=== PATIENT | female | born 1950 | race Caucasian/White ===

== ENCOUNTER 2021-04-23 20:08 | Inpatient (IN) | payer BC, MEDICARE, OTHER ==
[~2021-04-23] VITALS: Ht 175.3 cm; Wt 75.2 kg
[2021-04-24] MEDS ORDERED: bisacodyl 10mg suppository rectal RC PRN (04:40)
[2021-04-24] MEDS ORDERED: magnesium hydroxide 30ml (MOM) UD suspension PO PRN (04:40)
[2021-04-24] MEDS ORDERED: HYDROcodone/acetaminophen 10/325mg tab PO PRN (04:40)
[2021-04-24] MEDS ORDERED: diphenhydrAMINE 25mg capsule PO PRN (04:40)
[2021-04-24] MEDS ORDERED: acetaminophen 325mg tablet PO PRN ×2 (04:40)
[2021-04-24] MEDS ORDERED: diphenhydrAMINE 50 mg/ml inj IV PRN (04:40)
[2021-04-24] MEDS ORDERED: ondansetron/PF 4mg/2ml inj IV PRN (04:40)
[2021-04-24] MEDS ORDERED: mag hydrox/Alum hydrox/simeth 30ml oral suspension PO PRN (04:40)
[2021-04-24] MEDS ORDERED: ipratropium/albuterol 3ml nebule NEB PRN (04:40)
[2021-04-24] MEDS ORDERED: ondansetron 4mg rapidly disintigrating tab PO PRN (04:40)
[2021-04-24] MEDS ORDERED: morphine 2 MG/ML inj. syringe IV PRN ×2 (04:40)
[2021-04-24] MEDS ORDERED: HYDROcodone/acetaminophen 5mg/325mg tablet PO PRN (04:40)
[2021-04-24] MEDS ORDERED: acetaminophen 650mg rectal suppository RC PRN (04:40)
[2021-04-24] MEDS ORDERED: dextrose 50%-water 50ml dispensing syringe IV PRN (04:50)
[2021-04-24] MEDS ORDERED: haloperidol lactate 5mg/ml inj IM PRN (04:50)
[2021-04-24] MEDS ORDERED: LORazepam 2 mg/ml vial IV PRN ×2 (04:50)
[2021-04-24 05:00] VITALS: BP 145/83
[2021-04-24] MEDS: normal saline 1000ml 1,000 ML IV SCH ×2 (05:00→14:40)
[2021-04-24] MEDS ORDERED: magnesium Cl slow-release 64mg tablet PO PRN (05:35)
[2021-04-24] MEDS ORDERED: potassium Cl 20 mEq SR tablet PO PRN (05:35)
[2021-04-24] MEDS ORDERED: magnesium 4gm in 100ml NS 100 ML IV PRN (05:35)
[2021-04-24] MEDS ORDERED: magnesium 2GM in 50ml NS 50 ML IV PRN (05:35)
[2021-04-24] MEDS ORDERED: Neutra Phos packet PO PRN (05:35)
[2021-04-24] MEDS: potassium CL 10mEq/100ml bag 100 ML IV SCH ×13 (05:40→17:40)
--- NOTE | 2021-04-24 06:47 | NUR ---
Patient in room PCU 3015. I have received report from SHILA Garcia and had the opportunity to ask questions and assume patient care.
--- NOTE | 2021-04-24 07:06 | NUR ---
Problems reprioritized. Patient report given, questions answered & plan of care reviewed with Kvng. Addendum: 04/24/21 at 0707 by Suraj Benitez RN Amended: Links added.
[2021-04-24] MEDS: folic acid 1mg/0.2ml inj IV SCH (07:09)
[2021-04-24] MEDS: piperacillin/tazo 3.375gm/50ml 50 ML IV SCH ×2 (07:09→13:14)
[2021-04-24] MEDS: docusate sod 100mg capsule PO SCH ×2 (07:10→20:01)
[2021-04-24] MEDS: thiamine 100mg/ml 2ml inj. IV SCH ×3 (07:10→21:36)
[2021-04-24 07:21] LABS: APTT 34 SECONDS (22-32); D-DIMER 3.18 MG/L FEU (0-0.50)
[2021-04-24 07:23] VITALS: BP 145/83
[2021-04-24 07:53] LABS: MAGNESIUM 1.5 MG/DL (1.5-2.4); PHOSPHORUS 1.3 MG/DL (2.3-4.5)
[2021-04-24] MEDS: K and/or MAG REPLACEMENT MC SCH ×2 (08:00→20:00)
[2021-04-24 08:10] LABS: HEMOGLOBIN A1C 4.9 % (4.5-6.2)
--- NOTE | 2021-04-24 08:27 | NUR ---
PAGER ID: [phone] MESSAGE: [id number]- Nidia Brunner- per report patient pulled out mak catheter and has been pulling lines. Restraints were placed on patient by HS RN. Ok to order restraints? Thank you- Kvng [id number]
[2021-04-24 08:31] LABS: BASOPHILS % (AUTO) 0.2 % (0-1); EOSINOPHILS % (AUTO) 0.1 % (0-6); HEMATOCRIT 33.6 % (35.0-45.0); HEMOGLOBIN 11.6 g/dl (12.0-16.0); LYMPHOCYTES % (AUTO) 6.6 % (21-51); MEAN CORPUSCULAR HEMOGLOBIN 34.8 PG (27.0-31.0); MEAN CORPUSCULAR HGB CONC 34.4 g/dL (33.0-36.5); MEAN PLATELET VOLUME 7.5 FL (7.4-10.4); MONOCYTES # (AUTO) 1.9 X10'3 (0-0.9); MONOCYTES % (AUTO) 12.9 % (2-12); NEUTROPHILS # (AUTO) 11.7 X10'3 (1.8-7.7); NEUTROPHILS % (AUTO) 80.2 % (42-75); PLATELET COUNT 107 X10'3 (140-440); RED BLOOD COUNT 3.32 X10'6 (4.20-5.60); RED CELL DISTRIBUTION WIDTH 14.8 % (11.5-14.5); WHITE BLOOD COUNT 14.6 X10'3 (4.5-11.0)
[2021-04-24] MEDS ORDERED: MONT-40 PO (08:53)
[2021-04-24] MEDS ORDERED: FAMO20TA8 PO (08:53)
[2021-04-24] MEDS ORDERED: ALBU18HF2 PO (08:53)
[2021-04-24] MEDS ORDERED: rocuronium 10mg/ml inj IV ONE (09:00)
[2021-04-24] MEDS ORDERED: etomidate 2mg/ml inj. ONE (09:00)
[2021-04-24 09:06] LABS: ALANINE AMINOTRANSFERASE 25 U/L (12-78); ALBUMIN 2.6 G/DL (3.4-5.0); ALBUMIN/GLOBULIN RATIO 0.6 (1.1-1.5); ALKALINE PHOSPHATASE 95 IU/L (46-116); ANION GAP 12 (8-16); ASPARTATE AMINO TRANSFERASE 55 U/L (10-37); BILIRUBIN,TOTAL 2.1 MG/DL (0.1-1.0); BLOOD UREA NITROGEN 14 MG/DL (7-18); BUN/CREATININE RATIO 25.5 (6.6-38.0); CALCIUM 7.6 MG/DL (8.5-10.1); CHLORIDE 107 MMOL/L (99-107); CREATININE 0.55 MG/DL (0.40-0.90); SODIUM 144 MMOL/L (135-145); TOTAL CARBON DIOXIDE 24.9 MMOL/L (24-32); eGFR > 90 ML/MIN
[2021-04-24] MEDS: vancomycin/NS 1 GM ADD-VANTAGE 250 ML IV SCH ×2 (09:07→21:29)
[2021-04-24 09:11] LABS: GLUCOSE 107 MG/DL (70-104)
[2021-04-24 09:16] LABS: POTASSIUM 2.5 MMOL/L (3.5-5.1)
--- NOTE | 2021-04-24 10:21 | NUR ---
Patient unable to answer questions on CT screening form. Patient's Peña called for screening form.
[2021-04-24 10:59] LABS: LACTIC SEPSIS 1.8 MMOL/L (0.4-2.0)
[2021-04-24 11:00] VITALS: BP 156/79
[2021-04-24] MEDS ORDERED: iohexol 350MG/ML 100ml bottle IV ONE (11:50)
--- NOTE | 2021-04-24 12:17 | NUR ---
Patient down to CT scan.
--- NOTE | 2021-04-24 12:42 | NUR ---
Patient back to room 3015B.
[2021-04-24 15:48] VITALS: BP 137/86
[2021-04-24 18:00] VITALS: BP 137/84
--- NOTE | 2021-04-24 18:12 | NUR ---
Problems reprioritized. Patient report given, questions answered & plan of care reviewed with SHILA Chambers.
[2021-04-24] MEDS ORDERED: VANCOMYCIN LEVEL IV ONE (19:30)
[2021-04-24] MEDS: lactobacillus rhamnosus 10,000 MMU CELLS/CAPSULE PO SCH (20:01)
[2021-04-24 20:54] LABS: POTASSIUM 2.6 MMOL/L (3.5-5.1)
[2021-04-24 21:00] LABS: VANCOMYCIN,TROUGH 4.4 UG/ML (6.0-14.0)
[2021-04-24] MEDS ORDERED: temazepam 15mg capsule PO PRN (21:00)
[2021-04-24] MEDS: potassium Cl 20 mEq SR tablet PO PRN (21:36)
[2021-04-24 22:00] VITALS: BP 152/85
[2021-04-25] MEDS: normal saline 1000ml 1,000 ML IV SCH (00:35)
[2021-04-25] MEDS: piperacillin/tazo 3.375gm/50ml 50 ML IV SCH ×4 (00:51→21:40)
[2021-04-25 02:00] VITALS: BP 155/83
[2021-04-25] MEDS: potassium CL 10mEq/100ml bag 100 ML IV SCH ×9 (06:04→23:56)
--- NOTE | 2021-04-25 06:38 | NUR ---
Patient was very drowsy and agitated throughout the night in bilateral restraints. Attempting to get out of bed and pulled out iv several times.Medicated with atProblems reprioritized. Patient report given, questions answered & plan of care reviewed with lizzy.
[2021-04-25 07:00] VITALS: BP 151/60
--- NOTE | 2021-04-25 07:00 | NUR ---
Patient in room PCU 3015. I have received report from Edmondson and had the opportunity to ask questions and assume patient care.
[2021-04-25 07:27] LABS: BASOPHILS % (AUTO) 0.1 % (0-1); EOSINOPHILS % (AUTO) 0.2 % (0-6); HEMOGLOBIN 12.2 g/dl (12.0-16.0); LYMPHOCYTES # (AUTO) 1.5 X10'3 (1.1-4.8); LYMPHOCYTES % (AUTO) 11.6 % (21-51); MEAN CORPUSCULAR HEMOGLOBIN 35.1 PG (27.0-31.0); MEAN CORPUSCULAR HGB CONC 34.9 g/dL (33.0-36.5); MEAN CORPUSCULAR VOLUME 100.5 FL (78-98); MEAN PLATELET VOLUME 7.6 FL (7.4-10.4); MONOCYTES # (AUTO) 1.9 X10'3 (0-0.9); MONOCYTES % (AUTO) 15.2 % (2-12); NEUTROPHILS # (AUTO) 9.2 X10'3 (1.8-7.7); NEUTROPHILS % (AUTO) 72.9 % (42-75); PLATELET COUNT 132 X10'3 (140-440); RED BLOOD COUNT 3.48 X10'6 (4.20-5.60); RED CELL DISTRIBUTION WIDTH 14.7 % (11.5-14.5); WHITE BLOOD COUNT 12.7 X10'3 (4.5-11.0)
[2021-04-25 07:47] LABS: ALANINE AMINOTRANSFERASE 26 U/L (12-78); ALBUMIN 2.7 G/DL (3.4-5.0); ALBUMIN/GLOBULIN RATIO 0.6 (1.1-1.5); ALKALINE PHOSPHATASE 97 IU/L (46-116); ANION GAP 11 (8-16); ASPARTATE AMINO TRANSFERASE 65 U/L (10-37); BLOOD UREA NITROGEN 11 MG/DL (7-18); BUN/CREATININE RATIO 20.8 (6.6-38.0); CALCIUM 7.1 MG/DL (8.5-10.1); CHLORIDE 103 MMOL/L (99-107); CHOL/HDL RATIO 6.5 (0.00-4.99); CHOLESTEROL 183 MG/DL (0-200); CREATININE 0.53 MG/DL (0.40-0.90); HDL CHOLESTEROL 28 MG/DL (35-60); LDL CHOLESTEROL 122 MG/DL (50-100); SODIUM 143 MMOL/L (135-145); TOTAL PROTEIN 7.2 G/DL (6.4-8.2); TRIGLYCERIDES 92 MG/DL (20-135); eGFR > 90 ML/MIN
--- NOTE | 2021-04-25 07:47 | NUR ---
Provider made aware via [employer] messenger of patient's 2nd positive blood culture result drawn on 04/24/2021 called in this morning. Addendum: 04/25/21 at 0757 by Sofie Cason RN Provider also made aware that patient has a potassium-2.2 and magnesium-1.0. Plan of care per protocol.
[2021-04-25 07:48] LABS: GLUCOSE 107 MG/DL (70-104)
[2021-04-25 07:50] LABS: POTASSIUM 2.2 MMOL/L (3.5-5.1)
[2021-04-25] MEDS: lactobacillus rhamnosus 10,000 MMU CELLS/CAPSULE PO SCH ×3 (08:00→20:00)
[2021-04-25] MEDS: K and/or MAG REPLACEMENT MC SCH ×2 (08:00→20:00)
[2021-04-25] MEDS: docusate sod 100mg capsule PO SCH ×3 (08:00→20:00)
[2021-04-25] MEDS: thiamine 100mg/ml 2ml inj. IV SCH ×3 (08:10→22:35)
[2021-04-25] MEDS: folic acid 1mg/0.2ml inj IV SCH (08:10)
[2021-04-25] MEDS: potassium Cl 20 mEq SR tablet PO PRN (08:16)
[2021-04-25] MEDS: vancomycin/NS 1 GM ADD-VANTAGE 250 ML IV SCH ×2 (09:38→16:48)
[2021-04-25 11:00] VITALS: BP 152/90
[2021-04-25] MEDS: potassium Cl 20mEq in NS 1,000 ML IV SCH (11:56)
[2021-04-25 12:28] LABS: TOTAL CELLS COUNTED 100
[2021-04-25 12:29] LABS: PLATELET ESTIMATE DECREASED
[2021-04-25 15:00] VITALS: BP 151/90
[2021-04-25 18:00] VITALS: BP 172/88
--- NOTE | 2021-04-25 18:36 | NUR ---
Problems reprioritized. Patient report given, questions answered & plan of care reviewed with Ayana.
--- NOTE | 2021-04-25 18:47 | NUR ---
Request sent to Dr. Tam via [employer]ok to reorder patient's customer consulting manager if he wants patient to continue on the monitor.
[2021-04-25 22:00] VITALS: BP 160/94
[2021-04-26] MEDS: vancomycin/NS 1 GM ADD-VANTAGE 250 ML IV SCH ×2 (00:47→10:33)
[2021-04-26] MEDS: potassium Cl 20mEq in NS 1,000 ML IV SCH ×3 (00:56→17:59)
[2021-04-26 02:00] VITALS: BP 164/95
[2021-04-26] MEDS: piperacillin/tazo 3.375gm/50ml 50 ML IV SCH (05:55)
--- NOTE | 2021-04-26 06:00 | NUR ---
Pt slept most of the shift. Had frequent moments of putting her legs out of the bed. Arousable by shaking and calling her name. Oriented to self. Night time pills held since she is unable to take p.o at this time. Frequent rounding throughout the shift
--- NOTE | 2021-04-26 06:41 | NUR ---
Patient in room PCU 3015. I have received report from Ayana and had the opportunity to ask questions and assume patient care.
[2021-04-26 07:00] VITALS: BP 172/81
--- NOTE | 2021-04-26 07:00 | NUR ---
Change of shift report given to Celina RN Addendum: 04/26/21 at 0782 by Ayana Cason RN Amended: Links added.
[2021-04-26] MEDS ORDERED: VANCOMYCIN LEVEL IV ONE (07:30)
[2021-04-26] MEDS: docusate sod 100mg capsule PO SCH ×2 (08:00→20:00)
[2021-04-26] MEDS: lactobacillus rhamnosus 10,000 MMU CELLS/CAPSULE PO SCH ×2 (08:00→20:00)
[2021-04-26] MEDS: K and/or MAG REPLACEMENT MC SCH ×2 (08:00→20:00)
[2021-04-26] MEDS: thiamine 100mg/ml 2ml inj. IV SCH ×3 (09:13→21:00)
[2021-04-26] MEDS: folic acid 1mg/0.2ml inj IV SCH (09:14)
[2021-04-26 09:38] LABS: BASOPHILS % (AUTO) 0.1 % (0-1); EOSINOPHILS % (AUTO) 0.1 % (0-6); HEMATOCRIT 37.6 % (35.0-45.0); HEMOGLOBIN 13.3 g/dl (12.0-16.0); LYMPHOCYTES # (AUTO) 1.6 X10'3 (1.1-4.8); LYMPHOCYTES % (AUTO) 10.1 % (21-51); MEAN CORPUSCULAR HEMOGLOBIN 35.1 PG (27.0-31.0); MEAN CORPUSCULAR HGB CONC 35.3 g/dL (33.0-36.5); MEAN CORPUSCULAR VOLUME 99.7 FL (78-98); MEAN PLATELET VOLUME 7.3 FL (7.4-10.4); MONOCYTES # (AUTO) 2.5 X10'3 (0-0.9); MONOCYTES % (AUTO) 15.7 % (2-12); NEUTROPHILS # (AUTO) 11.7 X10'3 (1.8-7.7); PLATELET COUNT 161 X10'3 (140-440); RED BLOOD COUNT 3.78 X10'6 (4.20-5.60); RED CELL DISTRIBUTION WIDTH 14.9 % (11.5-14.5); WHITE BLOOD COUNT 15.9 X10'3 (4.5-11.0)
[2021-04-26 09:59] LABS: ALBUMIN 2.7 G/DL (3.4-5.0); ALKALINE PHOSPHATASE 111 IU/L (46-116); ANION GAP 15 (8-16); ASPARTATE AMINO TRANSFERASE 93 U/L (10-37); BILIRUBIN,TOTAL 4.7 MG/DL (0.1-1.0); BLOOD UREA NITROGEN 9 MG/DL (7-18); CALCIUM 6.6 MG/DL (8.5-10.1); CHLORIDE 101 MMOL/L (99-107); CREATININE 0.53 MG/DL (0.40-0.90); MAGNESIUM 1.8 MG/DL (1.5-2.4); SODIUM 143 MMOL/L (135-145); TOTAL CARBON DIOXIDE 27.5 MMOL/L (24-32); eGFR > 90 ML/MIN
[2021-04-26 10:06] LABS: ALBUMIN/GLOBULIN RATIO 0.6 (1.1-1.5); GLUCOSE 106 MG/DL (70-104); TOTAL PROTEIN 7.3 G/DL (6.4-8.2); VANCOMYCIN,TROUGH 7.5 UG/ML (6.0-14.0)
[2021-04-26 10:11] LABS: POTASSIUM 2.1 MMOL/L (3.5-5.1)
--- NOTE | 2021-04-26 10:24 | NUR ---
Dr Tam made aware via [employer] that patient has a potassium-2.1 called in at 1010.
[2021-04-26] MEDS ORDERED: potassium CL 10mEq/100ml bag 100 ML IV PRN (10:25)
[2021-04-26] MEDS ORDERED: potassium Cl 20 mEq SR tablet PO PRN ×2 (10:25)
[2021-04-26] MEDS ORDERED: magnesium 4gm in 100ml NS 100 ML IV PRN (10:25)
[2021-04-26] MEDS ORDERED: magnesium Cl slow-release 64mg tablet PO PRN (10:25)
[2021-04-26 10:27] LABS: ALANINE AMINOTRANSFERASE 38 U/L (12-78)
[2021-04-26] MEDS: potassium CL 10mEq/100ml bag 100 ML IV PRN ×5 (10:50→22:30)
[2021-04-26 11:00] VITALS: BP 149/91
[2021-04-26 11:28] LABS: PLATELET ESTIMATE NORMAL; TOTAL CELLS COUNTED 100
[2021-04-26 11:31] LABS: MAGNESIUM 1.5 MG/DL (1.5-2.4)
[2021-04-26 11:36] LABS: POTASSIUM 2.1 MMOL/L (3.5-5.1)
[2021-04-26] MEDS: levoFLOXACIN-Levaquin 750MG/D5 150 ML IV SCH (13:00)
--- NOTE | 2021-04-26 14:03 | NUR ---
Provider made aware that patient's -Peña Albertgianna ([phone]) requests to talk to the provider.
[2021-04-26 15:00] VITALS: BP 153/86
[2021-04-26] MEDS ORDERED: VANCOmycin 1250MG/NS 250ml Bag 250 ML IV SCH (16:00)
[2021-04-26 18:00] VITALS: BP 153/94
--- NOTE | 2021-04-26 19:03 | NUR ---
Problems reprioritized. Patient report given, questions answered & plan of care reviewed with Power.
[2021-04-26] MEDS ORDERED: iohexol 300mg/ml 100ml inj. ONE (19:06)
[2021-04-26] MEDS: magnesium oxide 400mg tablet PO SCH (20:00)
[2021-04-26 22:00] VITALS: BP 161/94
[2021-04-27] VITALS (20 sets, daily range): BP systolic 69–156; BP diastolic 42–91
[2021-04-27] MEDS ORDERED: furosemide 40mg/4ml inj IV ONE (01:20)
[2021-04-27] MEDS ORDERED: furosemide 40mg/4ml inj ONE (01:22)
[2021-04-27 01:49] LABS: ABG BASE EXCESS 5.5 mmol/L (-2.0-2.0); ABG HCO3 29.9 mmol/L (22.0-26.0); ABG OXYGEN SATURATION 81.4 % (94-97); ABG PCO2 (T) 41.8 mmHg (32.0-45.0); ABG PO2 (T) 45.1 mmHg (75.0-100.0); ALLEN'S TEST POSITIVE; FCOHb 0.7 % (0.0-3.9); FLOW 15 L/min; FMetHb 0.3 % (0.0-1.5); FO2Hb 80.6 % (94-97); PATIENT TEMPERATURE 36.7
[2021-04-27] MEDS ORDERED: LIDOcaine 2% 10ml TOPICAL JELLY (Urojet) TP ONE (01:50)
[2021-04-27 02:01] LABS: BASOPHILS # (AUTO) 0.2 X10'3 (0-0.2); EOSINOPHILS % (AUTO) 0.1 % (0-6); HEMATOCRIT 42.8 % (35.0-45.0); LYMPHOCYTES # (AUTO) 2.1 X10'3 (1.1-4.8); LYMPHOCYTES % (AUTO) 10.5 % (21-51); MEAN CORPUSCULAR HEMOGLOBIN 34.8 PG (27.0-31.0); MEAN CORPUSCULAR VOLUME 99.5 FL (78-98); MEAN PLATELET VOLUME 7.2 FL (7.4-10.4); MONOCYTES # (AUTO) 3.1 X10'3 (0-0.9); MONOCYTES % (AUTO) 15.4 % (2-12); NEUTROPHILS # (AUTO) 14.5 X10'3 (1.8-7.7); PLATELET COUNT 265 X10'3 (140-440); RED CELL DISTRIBUTION WIDTH 14.7 % (11.5-14.5); WHITE BLOOD COUNT 19.9 X10'3 (4.5-11.0)
[2021-04-27 02:18] LABS: CLARITY,URINE CLEAR (Clear); GLUCOSE, URINE NEGATIVE (Neg); KETONES,URINE NEGATIVE (Neg); LEUKOCYTE ESTERASE ,URINE NEGATIVE (Neg); NITRITES, URINE NEGATIVE (Neg); OCCULT BLOOD,URINE MODERATE (Neg); PROTEIN,URINE NEGATIVE (Neg); UROBILINOGEN,URINE 0.2 E.U/dL (0.2-1.0)
[2021-04-27 02:24] LABS: UA COLLECTION TYPE NON-SPECIFIED
[2021-04-27 02:26] LABS: BACTERIA,URINE NONE SEEN /HPF (Neg); SQUAMOUS EPITHELIAL CELL,UR FEW /LPF (FEW); WBC,URINE 0-4 /HPF (0-4)
[2021-04-27 02:26] LABS: ALANINE AMINOTRANSFERASE 47 U/L (12-78); ALBUMIN 3.1 G/DL (3.4-5.0); ALKALINE PHOSPHATASE 129 IU/L (46-116); ANION GAP 14 (8-16); ASPARTATE AMINO TRANSFERASE 119 U/L (10-37); BILIRUBIN,TOTAL 5.4 MG/DL (0.1-1.0); BLOOD UREA NITROGEN 14 MG/DL (7-18); BUN/CREATININE RATIO 20.3 (6.6-38.0); CALCIUM 6.8 MG/DL (8.5-10.1); CHLORIDE 103 MMOL/L (99-107); CREATININE 0.69 MG/DL (0.40-0.90); LIPASE 193 U/L (73-393); MAGNESIUM 1.1 MG/DL (1.5-2.4); SODIUM 145 MMOL/L (135-145); TOTAL CARBON DIOXIDE 28.3 MMOL/L (24-32); eGFR 84 ML/MIN
[2021-04-27 02:27] LABS: MUCUS STRANDS NONE SEEN /LPF (Neg)
[2021-04-27 02:27] LABS: CREATINE KINASE 1039 U/L (26-192); GLUCOSE 137 MG/DL (70-104); PHOSPHORUS 1.6 MG/DL (2.3-4.5); TOTAL PROTEIN 8.1 G/DL (6.4-8.2)
[2021-04-27 02:28] LABS: POTASSIUM 2.7 MMOL/L (3.5-5.1)
[2021-04-27 02:29] LABS: ALBUMIN/GLOBULIN RATIO 0.6 (1.1-1.5)
[2021-04-27 02:32] LABS: COLOR,URINE STRAW (Yellow)
[2021-04-27 02:44] LABS: PLATELET ESTIMATE NORMAL; TOTAL CELLS COUNTED 100
[2021-04-27 03:37] LABS: ABG BASE EXCESS 2.5 mmol/L (-2.0-2.0); ABG HCO3 26.8 mmol/L (22.0-26.0); ABG PCO2 (T) 40.6 mmHg (32.0-45.0); ABG PO2 (T) 83.1 mmHg (75.0-100.0); ALLEN'S TEST POSITIVE; FCOHb 0.2 % (0.0-3.9); FMetHb 0.4 % (0.0-1.5); FO2Hb 95.4 % (94-97); RESPIRATORY RATE 18 b/min; TOTAL HEMOGLOBIN 15.6 G/dl (12.0-16.0)
[2021-04-27 05:06] LABS: ABG BASE EXCESS 3.6 mmol/L (-2.0-2.0); ABG HCO3 30.1 mmol/L (22.0-26.0); ABG OXYGEN SATURATION 85.5 % (94-97); ABG PCO2 (T) 52.1 mmHg (32.0-45.0); ABG PO2 (T) 52.6 mmHg (75.0-100.0); ALLEN'S TEST POSITIVE; FCOHb 0.1 % (0.0-3.9); FMetHb 0.4 % (0.0-1.5); FO2Hb 85.1 % (94-97); PATIENT TEMPERATURE 36.8; RESPIRATORY RATE 18 b/min; TOTAL HEMOGLOBIN 15.6 G/dl (12.0-16.0)
--- NOTE | 2021-04-27 05:30 | NUR ---
Patient was on respiratory distress. Rapid response team was activated, after reevaluation and investigation, patient was transferred to ICU for higher level of care. Report was given to SHILA Lawrence.
[2021-04-27] MEDS ORDERED: NORepinephrine 8mg/ 250ml NS 250 ML IV ONE ×2 (05:47→20:04)
[2021-04-27 06:00] LABS: ABG BASE EXCESS 0.6 mmol/L (-2.0-2.0); ABG HCO3 26.2 mmol/L (22.0-26.0); ABG OXYGEN SATURATION 79.6 % (94-97); ABG PCO2 (T) 45.4 mmHg (32.0-45.0); ABG PO2 (T) 44.4 mmHg (75.0-100.0); ALLEN'S TEST POSITIVE; FCOHb 0.3 % (0.0-3.9); FMetHb 0.2 % (0.0-1.5); FO2Hb 79.2 % (94-97); PEEP 5 cm H2O; RESPIRATORY RATE 18 b/min; TIDAL VOLUME 400 mL
[2021-04-27] MEDS ORDERED: magnesium 4gm in 100ml NS 100 ML IV ONE (06:10)
[2021-04-27] MEDS ORDERED: potassium Cl 20 mEq/100mL bag IV SCH (06:10)
[2021-04-27] MEDS: propofol 1000mg/100ml bottle 100 ML IV SCH (06:20)
[2021-04-27] MEDS ORDERED: propofol 1000mg/100ml bottle 100 ML IV ONE (06:22)
--- NOTE | 2021-04-27 06:30 | NUR ---
Patient in room ICU 2042. I have received report from vineet and had the opportunity to ask questions and assume patient care.
[2021-04-27] MEDS: potassium Cl 20mEq/100mL bag 100 ML IV SCH ×3 (06:32→09:30)
--- NOTE | 2021-04-27 06:52 | NUR ---
PT was brought down after RR. PT transferred to ICU bed and placed on Bedside monitor. PT HR 140's-160's, on Bipap with O2 sat mid to high 80's. ED MD called for intubated. PT was intubated @ 0532 with a size 8.0 measuring 25 @ the teeth. PT became significantly hypotensive post intubation with BP 40's/20's. Levo started to PIV until ED MD placed a RT Femoral CVL and Levo was moved to CVL. Drsg placed in sterile fashion to CVL. BP improved. ICU Tele-Med ordered Mag replacement and CVL Potassium replacement. PT's HR remains 140's-150's, no new orders received in regards to HR. Ortega in place upon PT arrival to unit. Bed is locked and low. Bilat soft wrist restraints in place and secure. Report given to Amy FUCHS.
[2021-04-27] MEDS: K and/or MAG REPLACEMENT MC SCH ×2 (08:00→20:17)
[2021-04-27] MEDS: docusate sod 100mg capsule PO SCH ×2 (08:00→20:14)
--- NOTE | 2021-04-27 08:00 | NUR ---
pt sedated on diprivan. replacing k and mg per orders. st up to 160- diprivan bolus given as rr to 26 over vent rate. hr to 150. levophed adjusted up and down to maintain map at 60 or above. called and updated re pt coming to icu.. updated
[2021-04-27 08:01] LABS: TRIGLYCERIDES 107 MG/DL (20-135)
[2021-04-27] MEDS: potassium Cl 20mEq in NS 1,000 ML IV SCH ×2 (08:17→15:35)
[2021-04-27] MEDS: famotidine/PF 10 mg/ml inj IV SCH ×2 (08:23→20:14)
[2021-04-27] MEDS: heparin, porcine 5000 units/ml vial SQ SCH ×2 (08:23→20:15)
[2021-04-27] MEDS: levoFLOXACIN-Levaquin 750MG/D5 150 ML IV SCH (08:23)
[2021-04-27] MEDS: lactobacillus rhamnosus 10,000 MMU CELLS/CAPSULE PO SCH ×2 (08:24→20:14)
[2021-04-27] MEDS: magnesium oxide 400mg tablet PO SCH ×2 (08:26→20:15)
[2021-04-27] MEDS: FENTANYL-0.9 % NACL/PF 100 ML IV PRN (10:40)
[2021-04-27] MEDS: midazolam 100mg in NS 100ml 100 ML IV PRN (10:41)
[2021-04-27] MEDS: ceFAZolin/D5W- 1GM premix 50 ML IV SCH ×3 (10:41→20:14)
[2021-04-27 11:55] LABS: ALANINE AMINOTRANSFERASE 41 U/L (12-78); ALBUMIN 2.6 G/DL (3.4-5.0); ALBUMIN/GLOBULIN RATIO 0.6 (1.1-1.5); ALKALINE PHOSPHATASE 110 IU/L (46-116); ANION GAP 13 (8-16); ASPARTATE AMINO TRANSFERASE 94 U/L (10-37); BILIRUBIN,TOTAL 4.9 MG/DL (0.1-1.0); BLOOD UREA NITROGEN 33 MG/DL (7-18); BUN/CREATININE RATIO 25.4 (6.6-38.0); CALCIUM 6.8 MG/DL (8.5-10.1); CHLORIDE 104 MMOL/L (99-107); GLUCOSE 181 MG/DL (70-104); MAGNESIUM 3.2 MG/DL (1.5-2.4); POTASSIUM 3.5 MMOL/L (3.5-5.1); SODIUM 143 MMOL/L (135-145); TOTAL CARBON DIOXIDE 26.5 MMOL/L (24-32); eGFR 41 ML/MIN
--- NOTE | 2021-04-27 13:48 | NUR ---
TF Consult: Pt intubated s/p rapid response DX sepsis, PNA, etoh abuse, transaminitis, cirrhosis, and hypokalemia/hypomagnesemia. Hx consuming half gallon of gin every 5-6 days receiving routine thiamin and folic acid this admit per EMR. MAP 112 w/ TF to start today per tax lawyer; recs below using IBW +10% as per RN bed scaled wt 67.2 kg this AM making BMI 31. LBM 04/23 receiving routine colace though PO 0% initial 3 days of clear liquids diet prior to intubation not assisting bowel motility. Will continue to monitor for TF tolerance and adjustment needs as medically indicated. Rec: 1. Continuous TF per MD using Vital AF at 45ml/hr goal; to provide 1080ml volume/day, 1296 kcals, 875ml water, and 81g protein. 2. additional water flush 200ml Q4H 3. PALB Q /; daily wts 4. routine bowel care Addendum: 04/27/21 at [address] Amended: Links added.
--- NOTE | 2021-04-27 14:00 | NUR ---
pt with tremors- questionable seizures today from rt neck down to toes- dr velasquez aware x2 and dr mejias- both witnessed. no specific orders given, but stopped after fentanyl and versed started. tremors lasted each time x 10 '.
[2021-04-27] MEDS: sodium phosphate inj. 15 MMOL in dextrose 5%-water 250 ML IV PRN (14:33)
--- NOTE | 2021-04-27 15:00 | NUR ---
lyaaron repeated- k and mg wnl, replacing phos and resumed main iv with ok. from . diprivan changed to fent and versed. hr to 112 now. uo minimal at 15 to 20cc/hr. updated .
[2021-04-27] MEDS ORDERED: VANCOMYCIN LEVEL IV ONE (15:30)
--- NOTE | 2021-04-27 16:19 | NUR ---
remains on 100% with peep at 10.- will decrease fio2 as tolerated.
[2021-04-27 17:57] LABS: PREALBUMIN 7.1 MG/DL (19-36)
[2021-04-27] MEDS: NORepinephrine 8mg/ 250ml NS 250 ML IV PRN (20:17)
[2021-04-27 21:52] LABS: ALANINE AMINOTRANSFERASE 33 U/L (12-78); ALBUMIN 2.4 G/DL (3.4-5.0); ALBUMIN/GLOBULIN RATIO 0.6 (1.1-1.5); ALKALINE PHOSPHATASE 98 IU/L (46-116); ANION GAP 9 (8-16); ASPARTATE AMINO TRANSFERASE 71 U/L (10-37); BILIRUBIN,TOTAL 3.4 MG/DL (0.1-1.0); BLOOD UREA NITROGEN 45 MG/DL (7-18); BUN/CREATININE RATIO 28.1 (6.6-38.0); CALCIUM 6.6 MG/DL (8.5-10.1); CHLORIDE 108 MMOL/L (99-107); MAGNESIUM 2.7 MG/DL (1.5-2.4); PHOSPHORUS 2.1 MG/DL (2.3-4.5); SODIUM 146 MMOL/L (135-145); TOTAL CARBON DIOXIDE 29.2 MMOL/L (24-32); TOTAL PROTEIN 6.4 G/DL (6.4-8.2); eGFR 32 ML/MIN
[2021-04-27 21:55] LABS: GLUCOSE 193 MG/DL (70-104)
[2021-04-27 21:57] LABS: POTASSIUM 2.7 MMOL/L (3.5-5.1)
[2021-04-27] MEDS: potassium Cl 20mEq/100mL bag 100 ML IV PRN ×2 (22:09→23:50)
[2021-04-28] VITALS (25 sets, daily range): BP systolic 90–128; BP diastolic 50–69
[2021-04-28] MEDS: FENTANYL-0.9 % NACL/PF 100 ML IV PRN ×2 (01:18→19:37)
[2021-04-28] MEDS: potassium Cl 20mEq/100mL bag 100 ML IV PRN ×6 (01:19→15:45)
[2021-04-28] MEDS: ceFAZolin/D5W- 1GM premix 50 ML IV SCH ×4 (02:32→19:35)
[2021-04-28 03:32] LABS: BASOPHILS # (AUTO) 0.2 X10'3 (0-0.2); BASOPHILS % (AUTO) 0.7 % (0-1); EOSINOPHILS # (AUTO) 0.3 X10'3 (0-0.9); EOSINOPHILS % (AUTO) 1.1 % (0-6); HEMATOCRIT 36.4 % (35.0-45.0); HEMOGLOBIN 12.6 g/dl (12.0-16.0); LYMPHOCYTES # (AUTO) 5.3 X10'3 (1.1-4.8); MEAN CORPUSCULAR HGB CONC 34.5 g/dL (33.0-36.5); MEAN CORPUSCULAR VOLUME 101.5 FL (78-98); MEAN PLATELET VOLUME 7.9 FL (7.4-10.4); MONOCYTES # (AUTO) 3.5 X10'3 (0-0.9); MONOCYTES % (AUTO) 14.5 % (2-12); NEUTROPHILS # (AUTO) 14.8 X10'3 (1.8-7.7); NEUTROPHILS % (AUTO) 61.7 % (42-75); PLATELET COUNT 290 X10'3 (140-440); RED BLOOD COUNT 3.59 X10'6 (4.20-5.60)
[2021-04-28 03:54] LABS: ALANINE AMINOTRANSFERASE 27 U/L (12-78); ALBUMIN 2.2 G/DL (3.4-5.0); ALBUMIN/GLOBULIN RATIO 0.5 (1.1-1.5); ALKALINE PHOSPHATASE 96 IU/L (46-116); ANION GAP 7 (8-16); ASPARTATE AMINO TRANSFERASE 61 U/L (10-37); BILIRUBIN,TOTAL 2.9 MG/DL (0.1-1.0); BLOOD UREA NITROGEN 46 MG/DL (7-18); BUN/CREATININE RATIO 33.1 (6.6-38.0); CALCIUM 6.3 MG/DL (8.5-10.1); CHLORIDE 112 MMOL/L (99-107); CREATININE 1.39 MG/DL (0.40-0.90); MAGNESIUM 2.5 MG/DL (1.5-2.4); POTASSIUM 4.1 MMOL/L (3.5-5.1); SODIUM 146 MMOL/L (135-145); TOTAL CARBON DIOXIDE 27.4 MMOL/L (24-32); TOTAL PROTEIN 6.4 G/DL (6.4-8.2); TRIGLYCERIDES 96 MG/DL (20-135); eGFR 38 ML/MIN
[2021-04-28 03:58] LABS: GLUCOSE 170 MG/DL (70-104)
[2021-04-28 04:01] LABS: PHOSPHORUS 1.1 MG/DL (2.3-4.5)
[2021-04-28 04:23] LABS: PLATELET ESTIMATE NORMAL; TOTAL CELLS COUNTED 100
[2021-04-28 04:26] LABS: ABG HCO3 26.8 mmol/L (22.0-26.0); ABG OXYGEN SATURATION 98.1 % (94-97); ABG PCO2 (T) 37.6 mmHg (32.0-45.0); ABG PO2 (T) 111.1 mmHg (75.0-100.0); ALLEN'S TEST POSITIVE; FCOHb 0.3 % (0.0-3.9); FMetHb 0.3 % (0.0-1.5); FO2Hb 97.5 % (94-97); PATIENT TEMPERATURE 36.5; PEEP 10 cm H2O; RESPIRATORY RATE 18 b/min; TIDAL VOLUME 400 mL; TOTAL HEMOGLOBIN 13.4 G/dl (12.0-16.0)
[2021-04-28] MEDS ORDERED: dexmedetomidin/NS 400mcg/100ml 100 ML IV SCH (04:45)
[2021-04-28] MEDS: sodium phosphate inj. 30 MMOL in dextrose 5%-water 250 ML IV PRN (05:36)
--- NOTE | 2021-04-28 06:30 | NUR ---
Patient in room ICU 2042. I have received report from and had the opportunity to ask questions and assume patient care.
[2021-04-28] MEDS: K and/or MAG REPLACEMENT MC SCH ×2 (08:00→19:36)
[2021-04-28] MEDS ORDERED: folic acid 1mg tablet PO SCH (08:00)
[2021-04-28] MEDS ORDERED: thiamine 100mg tablet PO SCH (08:00)
[2021-04-28] MEDS ORDERED: acetaminophen 325mg tablet OGT PRN ×2 (08:48)
[2021-04-28] MEDS ORDERED: diphenhydrAMINE 25 MG/10 ML UD oral solution OGT PRN (08:50)
[2021-04-28] MEDS ORDERED: acetaminophen 325mg/10.15ml oral unit dose solution OGT PRN ×2 (08:50)
[2021-04-28] MEDS ORDERED: mag hydrox/Alum hydrox/simeth 30ml oral suspension OGT PRN (08:51)
[2021-04-28] MEDS ORDERED: magnesium hydroxide 30ml (MOM) UD suspension OGT PRN (08:51)
[2021-04-28] MEDS ORDERED: ondansetron 4mg rapidly disintigrating tab OGT PRN (08:52)
[2021-04-28] MEDS ORDERED: Neutra Phos packet OGT PRN (08:52)
[2021-04-28] MEDS ORDERED: potassium Cl 20 mEq SR tablet OGT PRN ×2 (08:53→08:54)
[2021-04-28] MEDS: folic acid 1mg tablet OGT SCH (09:27)
[2021-04-28] MEDS: heparin, porcine 5000 units/ml vial SQ SCH ×2 (09:28→19:35)
[2021-04-28] MEDS: docusate sodium 100mg/10ml UD cup OGT SCH ×2 (09:28→18:50)
[2021-04-28] MEDS: famotidine/PF 10 mg/ml inj IV SCH ×2 (09:28→19:35)
[2021-04-28] MEDS: lactobacillus rhamnosus 10,000 MMU CELLS/CAPSULE OGT SCH ×2 (09:28→19:35)
[2021-04-28] MEDS: thiamine 100mg tablet OGT SCH (09:32)
[2021-04-28] MEDS: magnesium oxide 400mg tablet OGT SCH ×2 (09:34→19:35)
--- NOTE | 2021-04-28 10:55 | NUR ---
F/u 04/28: Pt ht actually 69in not initial 58in per RN at rounds making true BMI 21.9. Updated TF recs below given new estimated nutrient needs; MD notified. Will monitor for TF tolerance and further adjustment needs on the vent. Rec: 1. Continuous TF per MD using Vital AF at 70ml/hr goal; to provide 1680ml volume/day, 2016 kcals, 1361ml water, and 126g protein. 2. additional water flush 200ml Q4H 3. PALB Q ; daily wts 4. routine bowel care Addendum: 04/28/21 at [address] Amended: Links added.
[2021-04-28 11:37] LABS: MAGNESIUM 2.4 MG/DL (1.5-2.4); PHOSPHORUS 2.7 MG/DL (2.3-4.5)
[2021-04-28] MEDS: potassium Cl 20mEq in NS 1,000 ML IV SCH (11:58)
[2021-04-28] MEDS: midazolam 100mg in NS 100ml 100 ML IV PRN (14:41)
--- NOTE | 2021-04-28 15:38 | NUR ---
pt remains sedated, pts weight and height reassessed by train gate attendant- goal now to 70cc/hr., fio2 to 45%, then desat to 77 and 80's. lavaged and suctioned- scant thin to no sx. sedative bolus given, fio2 to 55, then later to 50. unable to wean peep. update to by phone. unable to wean levo at this time. precedex decd this am. labs checked- replacing k
[2021-04-28] MEDS ORDERED: normal saline 1000ml 1,000 ML IVB ONE (17:30)
[2021-04-28] MEDS: NORepinephrine 8mg/ 250ml NS 250 ML IV PRN (19:37)
[2021-04-28 23:18] LABS: MAGNESIUM 1.9 MG/DL (1.5-2.4)
[2021-04-29] VITALS (23 sets, daily range): BP systolic 114–144; BP diastolic 59–75
[2021-04-29] MEDS: sodium phosphate inj. 30 MMOL in dextrose 5%-water 250 ML IV PRN (00:01)
[2021-04-29] MEDS: potassium Cl 20mEq in NS 1,000 ML IV SCH ×2 (02:55→17:11)
[2021-04-29] MEDS: ceFAZolin/D5W- 1GM premix 50 ML IV SCH ×4 (02:55→20:01)
[2021-04-29 03:44] LABS: ABG BASE EXCESS 1.3 mmol/L (-2.0-2.0); ABG HCO3 25.6 mmol/L (22.0-26.0); ABG OXYGEN SATURATION 98.3 % (94-97); ABG PCO2 (T) 38.6 mmHg (32.0-45.0); ABG PO2 (T) 109.6 mmHg (75.0-100.0); ALLEN'S TEST POSITIVE; FCOHb 0.3 % (0.0-3.9); FMetHb 0.3 % (0.0-1.5); FO2Hb 97.7 % (94-97); PATIENT TEMPERATURE 36.6; PEEP 10 cm H2O; RESPIRATORY RATE 18 b/min; TIDAL VOLUME 400 mL; TOTAL HEMOGLOBIN 12.2 G/dl (12.0-16.0)
[2021-04-29 04:57] LABS: BASOPHILS # (AUTO) 0.1 X10'3 (0-0.2); BASOPHILS % (AUTO) 0.5 % (0-1); EOSINOPHILS # (AUTO) 0.4 X10'3 (0-0.9); EOSINOPHILS % (AUTO) 1.9 % (0-6); HEMATOCRIT 32.8 % (35.0-45.0); HEMOGLOBIN 11.1 g/dl (12.0-16.0); LYMPHOCYTES # (AUTO) 3.9 X10'3 (1.1-4.8); LYMPHOCYTES % (AUTO) 20.2 % (21-51); MEAN CORPUSCULAR HGB CONC 33.8 g/dL (33.0-36.5); MEAN CORPUSCULAR VOLUME 103.6 FL (78-98); MEAN PLATELET VOLUME 8.1 FL (7.4-10.4); MONOCYTES # (AUTO) 2.4 X10'3 (0-0.9); MONOCYTES % (AUTO) 12.6 % (2-12); NEUTROPHILS # (AUTO) 12.6 X10'3 (1.8-7.7); NEUTROPHILS % (AUTO) 64.8 % (42-75); PLATELET COUNT 250 X10'3 (140-440); RED BLOOD COUNT 3.17 X10'6 (4.20-5.60); RED CELL DISTRIBUTION WIDTH 15.7 % (11.5-14.5); WHITE BLOOD COUNT 19.4 X10'3 (4.5-11.0)
[2021-04-29 05:15] LABS: ALANINE AMINOTRANSFERASE 22 U/L (12-78); ALBUMIN/GLOBULIN RATIO 0.5 (1.1-1.5); ALKALINE PHOSPHATASE 109 IU/L (46-116); ANION GAP 6 (8-16); ASPARTATE AMINO TRANSFERASE 49 U/L (10-37); BILIRUBIN,TOTAL 2.1 MG/DL (0.1-1.0); BLOOD UREA NITROGEN 33 MG/DL (7-18); BUN/CREATININE RATIO 42.9 (6.6-38.0); CALCIUM 7.1 MG/DL (8.5-10.1); CHLORIDE 117 MMOL/L (99-107); CREATININE 0.77 MG/DL (0.40-0.90); MAGNESIUM 1.8 MG/DL (1.5-2.4); POTASSIUM 3.5 MMOL/L (3.5-5.1); SODIUM 150 MMOL/L (135-145); TOTAL CARBON DIOXIDE 26.8 MMOL/L (24-32); TOTAL PROTEIN 5.8 G/DL (6.4-8.2); eGFR 74 ML/MIN
[2021-04-29 05:16] LABS: GLUCOSE 186 MG/DL (70-104)
[2021-04-29 05:58] LABS: PLATELET ESTIMATE NORMAL; TOTAL CELLS COUNTED 100
[2021-04-29 05:59] LABS: POLYCHROMASIA FEW
[2021-04-29] MEDS: propofol 1000mg/100ml bottle 100 ML IV SCH (06:20)
[2021-04-29] MEDS: docusate sodium 100mg/10ml UD cup OGT SCH ×2 (08:00→19:02)
[2021-04-29] MEDS: K and/or MAG REPLACEMENT MC SCH ×2 (08:00→20:00)
[2021-04-29] MEDS: lactobacillus rhamnosus 10,000 MMU CELLS/CAPSULE OGT SCH ×2 (08:44→20:01)
[2021-04-29] MEDS: folic acid 1mg tablet OGT SCH (08:44)
[2021-04-29] MEDS: magnesium oxide 400mg tablet OGT SCH ×2 (08:44→20:01)
[2021-04-29] MEDS: famotidine/PF 10 mg/ml inj IV SCH ×2 (08:45→20:01)
[2021-04-29] MEDS: heparin, porcine 5000 units/ml vial SQ SCH ×2 (08:45→20:01)
[2021-04-29] MEDS: thiamine 100mg tablet OGT SCH (08:45)
[2021-04-29] MEDS ORDERED: normal saline 1000ml 1,000 ML IV ONE (10:45)
[2021-04-29] MEDS: sodium phosphate inj. 15 MMOL in dextrose 5%-water 250 ML IV PRN ×2 (11:27→22:23)
[2021-04-29] MEDS: FENTANYL-0.9 % NACL/PF 100 ML IV PRN (17:49)
[2021-04-30] VITALS (24 sets, daily range): BP systolic 114–154; BP diastolic 58–85
[2021-04-30] MEDS: ceFAZolin/D5W- 1GM premix 50 ML IV SCH ×4 (02:39→20:49)
[2021-04-30 03:44] LABS: ABG BASE EXCESS 4.2 mmol/L (-2.0-2.0); ABG HCO3 27.8 mmol/L (22.0-26.0); ABG PCO2 (T) 37.7 mmHg (32.0-45.0); ABG PO2 (T) 92.8 mmHg (75.0-100.0); ALLEN'S TEST POSITIVE; FCOHb 0.3 % (0.0-3.9); FMetHb 0.3 % (0.0-1.5); FO2Hb 96.4 % (94-97); PATIENT TEMPERATURE 36.9; PEEP 5 cm H2O; RESPIRATORY RATE 18 b/min; TIDAL VOLUME 400 mL; TOTAL HEMOGLOBIN 10.5 G/dl (12.0-16.0)
[2021-04-30 03:50] LABS: ALANINE AMINOTRANSFERASE 23 U/L (12-78); ALBUMIN 1.6 G/DL (3.4-5.0); ALBUMIN/GLOBULIN RATIO 0.4 (1.1-1.5); ALKALINE PHOSPHATASE 97 IU/L (46-116); ANION GAP 5 (8-16); ASPARTATE AMINO TRANSFERASE 49 U/L (10-37); BILIRUBIN,TOTAL 1.5 MG/DL (0.1-1.0); BLOOD UREA NITROGEN 27 MG/DL (7-18); BUN/CREATININE RATIO 43.5 (6.6-38.0); CALCIUM 7.3 MG/DL (8.5-10.1); CHLORIDE 119 MMOL/L (99-107); CREATININE 0.62 MG/DL (0.40-0.90); MAGNESIUM 1.5 MG/DL (1.5-2.4); PHOSPHORUS 2.2 MG/DL (2.3-4.5); POTASSIUM 3.3 MMOL/L (3.5-5.1); SODIUM 150 MMOL/L (135-145); TOTAL PROTEIN 5.2 G/DL (6.4-8.2); eGFR > 90 ML/MIN
[2021-04-30 03:54] LABS: BASOPHILS # (AUTO) 0.1 X10'3 (0-0.2); BASOPHILS % (AUTO) 0.4 % (0-1); EOSINOPHILS # (AUTO) 0.3 X10'3 (0-0.9); EOSINOPHILS % (AUTO) 1.9 % (0-6); HEMATOCRIT 27.6 % (35.0-45.0); HEMOGLOBIN 9.4 g/dl (12.0-16.0); LYMPHOCYTES # (AUTO) 2.5 X10'3 (1.1-4.8); LYMPHOCYTES % (AUTO) 18.6 % (21-51); MEAN CORPUSCULAR HEMOGLOBIN 35.4 PG (27.0-31.0); MEAN CORPUSCULAR HGB CONC 34.2 g/dL (33.0-36.5); MEAN CORPUSCULAR VOLUME 103.7 FL (78-98); MEAN PLATELET VOLUME 8.2 FL (7.4-10.4); MONOCYTES # (AUTO) 1.6 X10'3 (0-0.9); MONOCYTES % (AUTO) 11.7 % (2-12); NEUTROPHILS # (AUTO) 9.2 X10'3 (1.8-7.7); NEUTROPHILS % (AUTO) 67.4 % (42-75); PLATELET COUNT 182 X10'3 (140-440); RED BLOOD COUNT 2.67 X10'6 (4.20-5.60); RED CELL DISTRIBUTION WIDTH 15.9 % (11.5-14.5); WHITE BLOOD COUNT 13.6 X10'3 (4.5-11.0)
[2021-04-30 04:03] LABS: GLUCOSE 150 MG/DL (70-104)
[2021-04-30] MEDS: potassium Cl 20mEq/100mL bag 100 ML IV PRN ×2 (04:18→05:20)
[2021-04-30] MEDS ORDERED: potassium phosphate inj 15 MMOL in normal saline 250ml IV soln 250 ML IV ONE (07:40)
[2021-04-30] MEDS: K and/or MAG REPLACEMENT MC SCH ×2 (08:00→20:00)
--- NOTE | 2021-04-30 08:04 | NUR ---
F/u 04/30: Pt remains intubated and sedated, receiving TF at goal of Vital AF at 70ml/hr and tolerating well. Noted serum Na 150 though pt has been receiving boluses of NS per MD note, will wait to adjust water flush at this time. LBM 04/29 receiving routine colace. No change to recommendations, will continue to monitor. Rec: 1. Continuous TF per MD using Vital AF at 70ml/hr goal; to provide 1680ml volume/day, 2016 kcals, 1361ml water, and 126g protein. 2. additional water flush 200ml Q4H; monitor serum Na 3. PALB Q /; daily wts 4. routine bowel care Addendum: 04/30/21 at [address] Amended: Links added.
[2021-04-30] MEDS: magnesium oxide 400mg tablet OGT SCH ×2 (08:25→20:50)
[2021-04-30] MEDS: docusate sodium 100mg/10ml UD cup OGT SCH ×2 (08:25→20:49)
[2021-04-30] MEDS: thiamine 100mg tablet OGT SCH (08:25)
[2021-04-30] MEDS: folic acid 1mg tablet OGT SCH (08:25)
[2021-04-30] MEDS: famotidine/PF 10 mg/ml inj IV SCH ×2 (08:25→20:50)
[2021-04-30] MEDS: lactobacillus rhamnosus 10,000 MMU CELLS/CAPSULE OGT SCH ×2 (08:25→20:50)
[2021-04-30] MEDS: heparin, porcine 5000 units/ml vial SQ SCH ×2 (08:26→20:50)
--- NOTE | 2021-04-30 18:20 | NUR ---
Patient in room ICU 2042. I have received report from SHILA Ponce and had the opportunity to ask questions and assume patient care.
[2021-05-01] VITALS (23 sets, daily range): BP systolic 89–171; BP diastolic 46–88
[2021-05-01] MEDS: ceFAZolin/D5W- 1GM premix 50 ML IV SCH ×4 (02:11→20:46)
[2021-05-01 02:32] LABS: ABG BASE EXCESS 4.5 mmol/L (-2.0-2.0); ABG HCO3 26.8 mmol/L (22.0-26.0); ABG OXYGEN SATURATION 96.3 % (94-97); ABG PCO2 (T) 32.8 mmHg (32.0-45.0); ABG PO2 (T) 89.1 mmHg (75.0-100.0); ALLEN'S TEST POSITIVE; FCOHb 0.3 % (0.0-3.9); FMetHb 0.1 % (0.0-1.5); FO2Hb 95.9 % (94-97); PATIENT TEMPERATURE 37.5; PEEP 5 cm H2O; TOTAL HEMOGLOBIN 11.2 G/dl (12.0-16.0)
--- NOTE | 2021-05-01 06:15 | NUR ---
Problems reprioritized. Patient report given, questions answered & plan of care reviewed with SHILA Ponce.
[2021-05-01] MEDS: K and/or MAG REPLACEMENT MC SCH ×2 (06:53→08:00)
[2021-05-01 07:27] LABS: BASOPHILS # (AUTO) 0.1 X10'3 (0-0.2); BASOPHILS % (AUTO) 0.5 % (0-1); EOSINOPHILS # (AUTO) 0.1 X10'3 (0-0.9); EOSINOPHILS % (AUTO) 0.6 % (0-6); HEMATOCRIT 31.5 % (35.0-45.0); HEMOGLOBIN 10.6 g/dl (12.0-16.0); LYMPHOCYTES # (AUTO) 1.5 X10'3 (1.1-4.8); LYMPHOCYTES % (AUTO) 8.3 % (21-51); MEAN CORPUSCULAR HEMOGLOBIN 34.8 PG (27.0-31.0); MEAN CORPUSCULAR HGB CONC 33.6 g/dL (33.0-36.5); MEAN CORPUSCULAR VOLUME 103.6 FL (78-98); MEAN PLATELET VOLUME 8.4 FL (7.4-10.4); MONOCYTES % (AUTO) 11.1 % (2-12); NEUTROPHILS # (AUTO) 14.5 X10'3 (1.8-7.7); NEUTROPHILS % (AUTO) 79.5 % (42-75); PLATELET COUNT 233 X10'3 (140-440); RED BLOOD COUNT 3.04 X10'6 (4.20-5.60); RED CELL DISTRIBUTION WIDTH 15.7 % (11.5-14.5); WHITE BLOOD COUNT 18.2 X10'3 (4.5-11.0)
[2021-05-01 07:39] LABS: ALBUMIN 1.8 G/DL (3.4-5.0); ANION GAP 8 (8-16); BLOOD UREA NITROGEN 20 MG/DL (7-18); BUN/CREATININE RATIO 36.4 (6.6-38.0); CALCIUM 7.8 MG/DL (8.5-10.1); CHLORIDE 118 MMOL/L (99-107); CREATININE 0.55 MG/DL (0.40-0.90); MAGNESIUM 1.4 MG/DL (1.5-2.4); PHOSPHORUS 2.7 MG/DL (2.3-4.5); POTASSIUM 3.7 MMOL/L (3.5-5.1); SODIUM 152 MMOL/L (135-145); TOTAL CARBON DIOXIDE 26.3 MMOL/L (24-32); eGFR > 90 ML/MIN
[2021-05-01 07:42] LABS: GLUCOSE 190 MG/DL (70-104)
[2021-05-01] MEDS: lactobacillus rhamnosus 10,000 MMU CELLS/CAPSULE OGT SCH ×2 (08:00→20:47)
[2021-05-01] MEDS: thiamine 100mg tablet OGT SCH (08:00)
[2021-05-01] MEDS: magnesium oxide 400mg tablet OGT SCH ×2 (08:00→20:47)
[2021-05-01] MEDS: famotidine/PF 10 mg/ml inj IV SCH ×2 (08:01→20:47)
[2021-05-01] MEDS: heparin, porcine 5000 units/ml vial SQ SCH ×2 (08:01→20:47)
[2021-05-01] MEDS: folic acid 1mg tablet OGT SCH (08:01)
[2021-05-01] MEDS: magnesium 2GM in 50ml NS 50 ML IV PRN (08:01)
[2021-05-01] MEDS: docusate sodium 100mg/10ml UD cup OGT SCH ×2 (08:02→20:46)
[2021-05-01] MEDS ORDERED: DEXMEDETOMIDINE 400mcg/4ml inj 400 MCG in normal saline 100ml IV soln 96 ML IV SCH (10:50)
--- NOTE | 2021-05-01 12:38 | NUR ---
f/u 05/01: Serum Na 152 this AM. Water flush to change to 150ml Q2H per Special Tester. Current TF formula at goal rate of 70ml/hr provides 2126mg Na. Addendum: 05/01/21 at [address] Amended: Links added.
[2021-05-01] MEDS ORDERED: magnesium 2GM in 50ml NS 50 ML IV ONE (14:45)
[2021-05-01] MEDS: dexmedetomidin/NS 400mcg/100ml 100 ML IV SCH (15:29)
--- NOTE | 2021-05-01 22:04 | NUR ---
Blood sugar 191 mg/dl, spoke with Dr. Fraser regarding initiation of hyper/hypo glycemic management protocol. No new order given.
[2021-05-02] VITALS (25 sets, daily range): BP systolic 85–139; BP diastolic 47–66
[2021-05-02] MEDS: ceFAZolin/D5W- 1GM premix 50 ML IV SCH ×4 (02:00→21:06)
[2021-05-02 03:14] LABS: ABG HCO3 24.2 mmol/L (22.0-26.0); ABG OXYGEN SATURATION 94.2 % (94-97); ABG PCO2 (T) 29.3 mmHg (32.0-45.0); ABG PO2 (T) 70.8 mmHg (75.0-100.0); ALLEN'S TEST POSITIVE; FCOHb 0.2 % (0.0-3.9); FMetHb 0.3 % (0.0-1.5); FO2Hb 93.7 % (94-97); PATIENT TEMPERATURE 36.7; PEEP 5 cm H2O; TOTAL HEMOGLOBIN 10.2 G/dl (12.0-16.0)
[2021-05-02 05:08] LABS: BASOPHILS # (AUTO) 0.3 X10'3 (0-0.2); BASOPHILS % (AUTO) 1.6 % (0-1); EOSINOPHILS # (AUTO) 0.3 X10'3 (0-0.9); EOSINOPHILS % (AUTO) 1.7 % (0-6); HEMATOCRIT 28.3 % (35.0-45.0); HEMOGLOBIN 9.6 g/dl (12.0-16.0); LYMPHOCYTES # (AUTO) 1.2 X10'3 (1.1-4.8); LYMPHOCYTES % (AUTO) 7.2 % (21-51); MEAN CORPUSCULAR HEMOGLOBIN 35.4 PG (27.0-31.0); MEAN PLATELET VOLUME 8.2 FL (7.4-10.4); MONOCYTES # (AUTO) 1.5 X10'3 (0-0.9); MONOCYTES % (AUTO) 8.9 % (2-12); NEUTROPHILS # (AUTO) 13.5 X10'3 (1.8-7.7); NEUTROPHILS % (AUTO) 80.6 % (42-75); PLATELET COUNT 187 X10'3 (140-440); RED BLOOD COUNT 2.73 X10'6 (4.20-5.60); RED CELL DISTRIBUTION WIDTH 15.7 % (11.5-14.5); WHITE BLOOD COUNT 16.8 X10'3 (4.5-11.0)
[2021-05-02 05:14] LABS: ALBUMIN 1.6 G/DL (3.4-5.0); ANION GAP 8 (8-16); BLOOD UREA NITROGEN 31 MG/DL (7-18); BUN/CREATININE RATIO 50.8 (6.6-38.0); CALCIUM 7.8 MG/DL (8.5-10.1); CHLORIDE 114 MMOL/L (99-107); CREATININE 0.61 MG/DL (0.40-0.90); PHOSPHORUS 3.5 MG/DL (2.3-4.5); POTASSIUM 3.3 MMOL/L (3.5-5.1); SODIUM 146 MMOL/L (135-145); TOTAL CARBON DIOXIDE 24.1 MMOL/L (24-32); eGFR > 90 ML/MIN
[2021-05-02 05:16] LABS: GLUCOSE 153 MG/DL (70-104)
[2021-05-02] MEDS: potassium CL 10mEq/100ml bag 100 ML IV PRN ×4 (07:12→12:22)
[2021-05-02] MEDS: dexmedetomidin/NS 400mcg/100ml 100 ML IV SCH ×2 (07:14→13:45)
[2021-05-02] MEDS: K and/or MAG REPLACEMENT MC SCH ×2 (08:00→20:00)
[2021-05-02] MEDS: lactobacillus rhamnosus 10,000 MMU CELLS/CAPSULE OGT SCH ×2 (08:31→21:05)
[2021-05-02] MEDS: famotidine/PF 10 mg/ml inj IV SCH (08:31)
[2021-05-02] MEDS: thiamine 100mg tablet OGT SCH (08:31)
[2021-05-02] MEDS: magnesium oxide 400mg tablet OGT SCH ×2 (08:31→21:06)
[2021-05-02] MEDS: heparin, porcine 5000 units/ml vial SQ SCH ×2 (08:31→20:00)
[2021-05-02] MEDS: docusate sodium 100mg/10ml UD cup OGT SCH ×2 (08:32→21:05)
[2021-05-02] MEDS: folic acid 1mg tablet OGT SCH (08:32)
[2021-05-02] MEDS ORDERED: dextrose ORAL solution 15 GM/59 ML bottle PO PRN ×2 (11:40)
[2021-05-02] MEDS ORDERED: MESSAGE TO PHARMACY PO ONE (11:40)
[2021-05-02] MEDS ORDERED: dextrose 50%-water 50ml dispensing syringe IV PRN ×2 (11:40)
[2021-05-02] MEDS ORDERED: glucagon, human recombinant 1mg kit SUBCUT PRN (11:40)
[2021-05-02] MEDS: lactulose 20gm/30ml cup OGT SCH ×2 (12:17→21:05)
[2021-05-02] MEDS: insulin regular, human U-100 3ml vial - multi-dose SQ SCH ×2 (14:48→21:52)
--- NOTE | 2021-05-02 18:15 | NUR ---
Patient in room ICU 2042. I have received report from,SHILA Rodriguez, and had the opportunity to ask questions and assume patient care. Pt is stable, Tube feeding in progress. Bilat wrist restraints on, Pt on Vent, with settings, per order.
[2021-05-02] MEDS: famotidine 20mg tablet OGT SCH (21:06)
[2021-05-02] MEDS: insulin glargine (Lantus) pen - multi-dose SQ SCH (21:50)
[2021-05-03] VITALS (25 sets, daily range): BP systolic 120–175; BP diastolic 60–89
[2021-05-03] MEDS: insulin regular, human U-100 3ml vial - multi-dose SQ SCH ×2 (02:49→07:52)
[2021-05-03] MEDS: ceFAZolin/D5W- 1GM premix 50 ML IV SCH ×4 (02:57→19:18)
[2021-05-03] MEDS: dexmedetomidin/NS 400mcg/100ml 100 ML IV SCH (03:05)
[2021-05-03 03:34] LABS: ABG BASE EXCESS 1.3 mmol/L (-2.0-2.0); ABG HCO3 22.9 mmol/L (22.0-26.0); ABG OXYGEN SATURATION 95.7 % (94-97); ABG PCO2 (T) 27.8 mmHg (32.0-45.0); ABG PO2 (T) 80.9 mmHg (75.0-100.0); ALLEN'S TEST POSITIVE; FCOHb 0.3 % (0.0-3.9); FMetHb 0.3 % (0.0-1.5); FO2Hb 95.1 % (94-97); PATIENT TEMPERATURE 37.3; PEEP 5 cm H2O; TOTAL HEMOGLOBIN 11.9 G/dl (12.0-16.0)
--- NOTE | 2021-05-03 04:34 | NUR ---
Pt. given full bed bath, gown and linens changed, oral care given, all hygiene care given Turned and repositioned in bed.
--- NOTE | 2021-05-03 06:00 | NUR ---
Patient in room ICU 2042. I have received report from Terri FUCHS and had the opportunity to ask questions and assume patient care.
--- NOTE | 2021-05-03 06:28 | NUR ---
Problems reprioritized. Patient report given, questions answered & plan of care reviewed with SHILA Blair. Tube feeding continues.
--- NOTE | 2021-05-03 07:15 | NUR ---
pts rectal tube was not connected correctly to the bag and a large amount of liquid stool leaked out onto the sheets. pt bathed and sheets changed, pt repositioned, appears to be following commands now
[2021-05-03] MEDS: lactulose 20gm/30ml cup OGT SCH ×3 (07:34→19:19)
[2021-05-03] MEDS: lactobacillus rhamnosus 10,000 MMU CELLS/CAPSULE OGT SCH ×2 (07:34→19:19)
[2021-05-03] MEDS: docusate sodium 100mg/10ml UD cup OGT SCH ×2 (07:34→19:19)
[2021-05-03] MEDS: magnesium oxide 400mg tablet OGT SCH ×2 (07:34→19:19)
[2021-05-03] MEDS: thiamine 100mg tablet OGT SCH (07:35)
[2021-05-03] MEDS: folic acid 1mg tablet OGT SCH (07:35)
[2021-05-03] MEDS: famotidine 20mg tablet OGT SCH ×2 (07:35→19:18)
[2021-05-03] MEDS: heparin, porcine 5000 units/ml vial SQ SCH ×2 (07:35→19:22)
[2021-05-03 07:50] LABS: ALANINE AMINOTRANSFERASE 36 U/L (12-78); ALBUMIN 1.8 G/DL (3.4-5.0); ALBUMIN/GLOBULIN RATIO 0.4 (1.1-1.5); ALKALINE PHOSPHATASE 114 IU/L (46-116); ANION GAP 8 (8-16); ASPARTATE AMINO TRANSFERASE 65 U/L (10-37); BLOOD UREA NITROGEN 27 MG/DL (7-18); BUN/CREATININE RATIO 44.3 (6.6-38.0); CALCIUM 8.1 MG/DL (8.5-10.1); CHLORIDE 114 MMOL/L (99-107); CREATININE 0.61 MG/DL (0.40-0.90); GLUCOSE 121 MG/DL (70-104); POTASSIUM 3.3 MMOL/L (3.5-5.1); SODIUM 146 MMOL/L (135-145); TOTAL CARBON DIOXIDE 23.6 MMOL/L (24-32); TOTAL PROTEIN 6.8 G/DL (6.4-8.2); eGFR > 90 ML/MIN
[2021-05-03] MEDS: K and/or MAG REPLACEMENT MC SCH ×2 (08:00→20:00)
[2021-05-03] MEDS: potassium CL 10mEq/100ml bag 100 ML IV PRN ×4 (08:13→17:09)
[2021-05-03 08:21] LABS: MAGNESIUM 1.6 MG/DL (1.5-2.4)
--- NOTE | 2021-05-03 09:00 | NUR ---
spoke to patients Jordon. Update given, he states he will call back later this afternoon.
--- NOTE | 2021-05-03 11:32 | NUR ---
F/u 05/02: Pt remains intubated tolerating TF at goal GRV WNL. Pt TF held this AM pending possible extubation and if successful to have MARKETING RESEARCH ANALYST BSS per family development specialist at rounds. Rectal tube -450ml 05/02 last documented volume per EMR receiving routine colace and lactulose BID to increase to lactulose TID given increasing ammonia per MD. Will continue to monitor. Rec: 1. Continuous TF per MD using Vital AF at 70ml/hr goal; to provide 1680ml volume/day, 2016 kcals, 1361ml water, and 126g protein. 2. additional water flush 150ml Q2H Per MD; monitor serum Na 3. PALB Q /; daily wts 4. routine bowel care 5. upon extubation; advance diet as medically indicated Addendum: 05/03/21 at [address] Amended: Links added.
--- NOTE | 2021-05-03 13:08 | NUR ---
respiratory therapy paged for extubation
[2021-05-03] MEDS ORDERED: naloxone 0.4 mg/ml inj IV PRN (13:15)
--- NOTE | 2021-05-03 13:35 | NUR ---
pt extubated without difficulty, core pack OGT removed also along with core temp probe. pt is awake and alert, she is able to follow most commands.
--- NOTE | 2021-05-03 16:24 | NUR ---
geophysical laboratory supervisor at bedside, ammonia level drawn
--- NOTE | 2021-05-03 17:34 | NUR ---
nursing bedside swallow study completed, patient passed. pt still too shaky to feed herself so i held the cup for her and gave her some jello without difficulty
--- NOTE | 2021-05-03 18:18 | NUR ---
Patient in room ICU 2042. I have received report from SHILA Blair and had the opportunity to ask questions and assume patient care. Pt restless in bed, moving legs all over bed, pt states, she wants to get of bed, pt reassured, informed she is in hospital, needs, to calm down and relax, pt. verbalized understanding. Will continue to monitor.
--- NOTE | 2021-05-03 18:18 | NUR ---
Problems reprioritized. Patient report given, questions answered & plan of care reviewed with Terri FUCHS.
--- NOTE | 2021-05-03 19:18 | NUR ---
Lopressor 5mg/5mls, given IV, for elevated Bp of 171/81, Pt tolerated well, will continue to monitor.
[2021-05-03] MEDS ORDERED: metoprolol tartrate 1mg/ml inj IV PRN (20:00)
[2021-05-03] MEDS: insulin glargine (Lantus) pen - multi-dose SQ SCH (21:24)
[2021-05-03] MEDS: temazepam 15mg capsule OGT PRN (21:24)
--- NOTE | 2021-05-03 21:24 | NUR ---
Pt restless in bed, keeps staying, I want to get out of this bed and go home, I cant sleep, I need something to make me sleep, pt medicated with Restoril 15mg,po for sleep.
--- NOTE | 2021-05-03 22:25 | NUR ---
pt reassessed, sleeping quietly in bed, no distress noted. BP stable, within acceptable limit. Will continue to monitor.
[2021-05-04] VITALS (18 sets, daily range): BP systolic 122–172; BP diastolic 66–83
[2021-05-04] MEDS: ceFAZolin/D5W- 1GM premix 50 ML IV SCH ×4 (02:09→20:51)
[2021-05-04 03:41] LABS: BASOPHILS # (AUTO) 0.1 X10'3 (0-0.2); BASOPHILS % (AUTO) 0.6 % (0-1); EOSINOPHILS # (AUTO) 0.3 X10'3 (0-0.9); EOSINOPHILS % (AUTO) 1.9 % (0-6); HEMATOCRIT 29.1 % (35.0-45.0); LYMPHOCYTES # (AUTO) 2.5 X10'3 (1.1-4.8); LYMPHOCYTES % (AUTO) 18.9 % (21-51); MEAN CORPUSCULAR HEMOGLOBIN 35.9 PG (27.0-31.0); MEAN CORPUSCULAR HGB CONC 34.5 g/dL (33.0-36.5); MEAN CORPUSCULAR VOLUME 104.2 FL (78-98); MEAN PLATELET VOLUME 8.2 FL (7.4-10.4); MONOCYTES # (AUTO) 1.4 X10'3 (0-0.9); NEUTROPHILS # (AUTO) 8.9 X10'3 (1.8-7.7); NEUTROPHILS % (AUTO) 67.6 % (42-75); PLATELET COUNT 218 X10'3 (140-440); RED CELL DISTRIBUTION WIDTH 16.2 % (11.5-14.5); WHITE BLOOD COUNT 13.2 X10'3 (4.5-11.0)
[2021-05-04 04:03] LABS: ALANINE AMINOTRANSFERASE 32 U/L (12-78); ALBUMIN 1.7 G/DL (3.4-5.0); ALBUMIN/GLOBULIN RATIO 0.4 (1.1-1.5); ALKALINE PHOSPHATASE 95 IU/L (46-116); ANION GAP 4 (8-16); ASPARTATE AMINO TRANSFERASE 57 U/L (10-37); BILIRUBIN,TOTAL 2.2 MG/DL (0.1-1.0); BLOOD UREA NITROGEN 18 MG/DL (7-18); BUN/CREATININE RATIO 34.6 (6.6-38.0); CALCIUM 8.1 MG/DL (8.5-10.1); CHLORIDE 116 MMOL/L (99-107); CREATININE 0.52 MG/DL (0.40-0.90); GLUCOSE 98 MG/DL (70-104); POTASSIUM 3.4 MMOL/L (3.5-5.1); SODIUM 146 MMOL/L (135-145); TOTAL CARBON DIOXIDE 25.7 MMOL/L (24-32); TOTAL PROTEIN 6.3 G/DL (6.4-8.2); TRIGLYCERIDES 59 MG/DL (20-135); eGFR > 90 ML/MIN
--- NOTE | 2021-05-04 04:30 | NUR ---
Pt. given full bed bath, gown and linens changed, oral care given, all hygiene care given Turned and repositioned in bed
--- NOTE | 2021-05-04 06:15 | NUR ---
5Problems reprioritized. Patient report given, questions answered & plan of care reviewed with SHILA Blair.
[2021-05-04] MEDS: potassium CL 10mEq/100ml bag 100 ML IV PRN ×4 (06:48→15:25)
--- NOTE | 2021-05-04 06:49 | NUR ---
Patient in room ICU 2042. I have received report from Terri FUCHS and had the opportunity to ask questions and assume patient care.
--- NOTE | 2021-05-04 07:22 | NUR ---
speech therapist at bedside, pt passed his swallow study, diet changed to thin liquids and mechanical chopped due to her dentation
[2021-05-04] MEDS: K and/or MAG REPLACEMENT MC SCH ×2 (08:00→20:00)
[2021-05-04] MEDS: docusate sodium 100mg/10ml UD cup OGT SCH ×2 (08:16→20:49)
[2021-05-04] MEDS: lactobacillus rhamnosus 10,000 MMU CELLS/CAPSULE OGT SCH ×2 (08:16→20:50)
[2021-05-04] MEDS: thiamine 100mg tablet OGT SCH (08:16)
[2021-05-04] MEDS: famotidine 20mg tablet OGT SCH ×2 (08:16→20:50)
[2021-05-04] MEDS: folic acid 1mg tablet OGT SCH (08:16)
[2021-05-04] MEDS: lactulose 20gm/30ml cup OGT SCH (08:16)
[2021-05-04] MEDS: magnesium oxide 400mg tablet OGT SCH ×2 (08:16→20:50)
[2021-05-04] MEDS: heparin, porcine 5000 units/ml vial SQ SCH ×2 (08:18→20:49)
--- NOTE | 2021-05-04 08:56 | NUR ---
wound care nurses at bedside, complete skin check performed
--- NOTE | 2021-05-04 09:10 | NUR ---
assisted pt with her breakfast she ate 100%, but remains too shaky to feed her self, she was able to hold the cup and drink from a straw herself. she remains slightly confused asking for grout- says shes going to eat it. tried to drink the jello but she has improved from yesterday
--- NOTE | 2021-05-04 11:58 | NUR ---
F/u 05/04: Pt extubated yesterday advanced to SB6/thin liquids diet per EXECUTIVE COMMUNICATIONS MANAGER this AM. Pt received assistance w/ breakfast per RN PO 100% first clear liquid meal prior to EXECUTIVE COMMUNICATIONS MANAGER BSS per EMR. Pt ALOC still confused though better today per RN at rounds. Rectal tube -1300ml output s/p Lactulose TID w/ ammonia down to 20 this AM and Lactulose to change to once daily per field hockey and lacrosse coach. Will continue to monitor for PO trends and further nutrition intervention needs. Rec: 1. Continue SB6/thin/regular diet per EXECUTIVE COMMUNICATIONS MANAGER/MD recs; encourage PO; assistance w/ meals 2. monitor for PO trends and ONS needs 3. thiamin and folic acid supplementation for etoh hx per MD 4. routine bowel care; Lactulose once daily per MD 5. weekly wts Addendum: 05/04/21 at [address] Amended: Links added.
--- NOTE | 2021-05-04 13:24 | NUR ---
PRESSURE ULCER EDUCATION: DEFINITION: A pressure ulcer is an area of skin that breaks down when you stay in one position too long. The constant pressure against the skin reduces the blood flow to that area and the affected tissue dies. CAUSES: "Being bedridden or in a wheelchair "Fragile skin "Having a chronic condition, such as diabetes or vascular disease "Inability to move certain parts of your body without assistance "Older age "Incontinence of urine or stool SYMPTOMS: "A reddened area that DOES NOT turn white when pressed on - this can be the beginning of a pressure ulcer "A blister, deep sore or a crater - these can be advanced pressure ulcers FIRST AID: "Relieve the pressure on this area "Keep the area clean and dry "Call your primary doctor if you see any of the above symptoms "DO NOT massage the area "DO NOT use a donut shaped or ring shaped pillow- these actually interfere with the blood flow and cause complications PREVENTION: "Check for pressure ulcers everyday "Change position at least every two hours to relieve pressure "Use items that help relieve pressure- pillows, sheepskin, foam padding, and powders. "Keep skin clean and dry "Eat healthy well balanced meals "Exercise daily IF YOU SEE ANY OF THESE SYMPTOMS WHILE IN THE HOSPITAL - TELL YOUR NURSE IMMEDIATELY. IF YOU SEE ANY OF THESE SYMPTOMS WHILE AT HOME OR HAVE ANY QUESTIONS OR CONCERNS ABOUT PRESSURE ULCERS - CALL YOUR PRIMARY DOCTOR IMMEDIATELY. Addendum: 05/04/21 at 1325 by Danni Guerrero RN Amended: Links added.
[2021-05-04] MEDS: aspirin 81mg, enteric-coated 1 TAB TABLET.DR PO SCH (15:25)
[2021-05-04] MEDS: clopidogrel 75mg tablet PO SCH (15:26)
[2021-05-04] MEDS: atorvastatin 20mg tablet PO SCH (15:26)
[2021-05-04] MEDS: metoprolol tartrate 25mg tablet PO SCH ×2 (15:27→20:50)
--- NOTE | 2021-05-04 15:45 | NUR ---
Problems reprioritized. Patient report given, questions answered & plan of care reviewed with Dani FUCHS .
[2021-05-04] MEDS: temazepam 15mg capsule OGT PRN (20:50)
[2021-05-04] MEDS: insulin glargine (Lantus) pen - multi-dose SQ SCH (21:00)
[2021-05-05] VITALS (7 sets, daily range): BP systolic 91–145; BP diastolic 45–81
[2021-05-05] MEDS: ceFAZolin/D5W- 1GM premix 50 ML IV SCH ×4 (02:34→20:09)
[2021-05-05] MEDS: famotidine 20mg tablet OGT SCH ×2 (07:48→20:09)
[2021-05-05] MEDS: lactobacillus rhamnosus 10,000 MMU CELLS/CAPSULE OGT SCH ×2 (07:48→20:10)
[2021-05-05] MEDS: magnesium oxide 400mg tablet OGT SCH ×2 (07:49→20:10)
[2021-05-05] MEDS: folic acid 1mg tablet OGT SCH (07:49)
[2021-05-05] MEDS: clopidogrel 75mg tablet PO SCH (07:49)
[2021-05-05] MEDS: atorvastatin 20mg tablet PO SCH (07:49)
[2021-05-05] MEDS: thiamine 100mg tablet OGT SCH (07:49)
[2021-05-05] MEDS: aspirin 81mg, enteric-coated 1 TAB TABLET.DR PO SCH (07:49)
[2021-05-05] MEDS: metoprolol tartrate 25mg tablet PO SCH ×2 (07:49→20:10)
[2021-05-05] MEDS: heparin, porcine 5000 units/ml vial SQ SCH ×2 (07:50→20:10)
[2021-05-05] MEDS: lactulose 20gm/30ml cup OGT SCH (07:50)
[2021-05-05] MEDS: docusate sodium 100mg/10ml UD cup OGT SCH ×2 (07:50→20:10)
[2021-05-05 07:57] LABS: BASOPHILS # (AUTO) 0.1 X10'3 (0-0.2); BASOPHILS % (AUTO) 0.9 % (0-1); EOSINOPHILS # (AUTO) 0.3 X10'3 (0-0.9); EOSINOPHILS % (AUTO) 2.4 % (0-6); HEMATOCRIT 31.5 % (35.0-45.0); HEMOGLOBIN 10.7 g/dl (12.0-16.0); LYMPHOCYTES # (AUTO) 2.1 X10'3 (1.1-4.8); LYMPHOCYTES % (AUTO) 17.3 % (21-51); MEAN CORPUSCULAR HEMOGLOBIN 35.7 PG (27.0-31.0); MEAN CORPUSCULAR HGB CONC 34.1 g/dL (33.0-36.5); MEAN CORPUSCULAR VOLUME 104.6 FL (78-98); MEAN PLATELET VOLUME 8.4 FL (7.4-10.4); MONOCYTES # (AUTO) 1.4 X10'3 (0-0.9); MONOCYTES % (AUTO) 11.7 % (2-12); NEUTROPHILS # (AUTO) 8.1 X10'3 (1.8-7.7); NEUTROPHILS % (AUTO) 67.7 % (42-75); PLATELET COUNT 234 X10'3 (140-440); RED BLOOD COUNT 3.01 X10'6 (4.20-5.60); RED CELL DISTRIBUTION WIDTH 15.8 % (11.5-14.5)
[2021-05-05] MEDS: K and/or MAG REPLACEMENT MC SCH ×2 (08:00→19:52)
[2021-05-05 08:08] LABS: ALANINE AMINOTRANSFERASE 26 U/L (12-78); ALBUMIN 1.8 G/DL (3.4-5.0); ALBUMIN/GLOBULIN RATIO 0.4 (1.1-1.5); ALKALINE PHOSPHATASE 102 IU/L (46-116); ANION GAP 7 (8-16); ASPARTATE AMINO TRANSFERASE 59 U/L (10-37); BILIRUBIN,TOTAL 2.2 MG/DL (0.1-1.0); BLOOD UREA NITROGEN 14 MG/DL (7-18); BUN/CREATININE RATIO 30.4 (6.6-38.0); CHLORIDE 111 MMOL/L (99-107); CREATININE 0.46 MG/DL (0.40-0.90); POTASSIUM 3.1 MMOL/L (3.5-5.1); SODIUM 143 MMOL/L (135-145); TOTAL CARBON DIOXIDE 25.1 MMOL/L (24-32); TOTAL PROTEIN 6.5 G/DL (6.4-8.2); TRIGLYCERIDES 92 MG/DL (20-135); eGFR > 90 ML/MIN
[2021-05-05 08:21] LABS: GLUCOSE 88 MG/DL (70-104)
[2021-05-05 09:40] LABS: PREALBUMIN 8.6 MG/DL (19-36)
[2021-05-05] MEDS: insulin glargine (Lantus) pen - multi-dose SQ SCH (21:00)
[2021-05-05] MEDS: potassium CL 10mEq/100ml bag 100 ML IV PRN (22:32)
[2021-05-06] VITALS (7 sets, daily range): BP systolic 110–159; BP diastolic 53–84
[2021-05-06] MEDS: ceFAZolin/D5W- 1GM premix 50 ML IV SCH ×4 (02:45→19:03)
[2021-05-06 06:28] LABS: BASOPHILS # (AUTO) 0.1 X10'3 (0-0.2); BASOPHILS % (AUTO) 0.6 % (0-1); EOSINOPHILS # (AUTO) 0.2 X10'3 (0-0.9); EOSINOPHILS % (AUTO) 1.3 % (0-6); HEMATOCRIT 32.2 % (35.0-45.0); HEMOGLOBIN 11.2 g/dl (12.0-16.0); LYMPHOCYTES # (AUTO) 2.6 X10'3 (1.1-4.8); LYMPHOCYTES % (AUTO) 19.3 % (21-51); MEAN CORPUSCULAR HEMOGLOBIN 36.1 PG (27.0-31.0); MEAN CORPUSCULAR HGB CONC 34.7 g/dL (33.0-36.5); MEAN PLATELET VOLUME 8.1 FL (7.4-10.4); MONOCYTES # (AUTO) 1.6 X10'3 (0-0.9); MONOCYTES % (AUTO) 11.7 % (2-12); NEUTROPHILS % (AUTO) 67.1 % (42-75); PLATELET COUNT 240 X10'3 (140-440); RED BLOOD COUNT 3.09 X10'6 (4.20-5.60); RED CELL DISTRIBUTION WIDTH 16.4 % (11.5-14.5); WHITE BLOOD COUNT 13.5 X10'3 (4.5-11.0)
[2021-05-06 06:36] LABS: ALANINE AMINOTRANSFERASE 32 U/L (12-78); ALBUMIN 1.8 G/DL (3.4-5.0); ALBUMIN/GLOBULIN RATIO 0.4 (1.1-1.5); ALKALINE PHOSPHATASE 116 IU/L (46-116); ANION GAP 7 (8-16); ASPARTATE AMINO TRANSFERASE 59 U/L (10-37); BILIRUBIN,TOTAL 2.1 MG/DL (0.1-1.0); BLOOD UREA NITROGEN 12 MG/DL (7-18); CALCIUM 8.5 MG/DL (8.5-10.1); CHLORIDE 107 MMOL/L (99-107); SODIUM 137 MMOL/L (135-145); TOTAL CARBON DIOXIDE 22.9 MMOL/L (24-32); TOTAL PROTEIN 6.8 G/DL (6.4-8.2); eGFR > 90 ML/MIN
[2021-05-06 06:37] LABS: GLUCOSE 99 MG/DL (70-104)
[2021-05-06] MEDS: potassium CL 10mEq/100ml bag 100 ML IV PRN ×6 (07:42→22:55)
[2021-05-06] MEDS: clopidogrel 75mg tablet PO SCH (07:43)
[2021-05-06] MEDS: heparin, porcine 5000 units/ml vial SQ SCH ×2 (07:43→19:10)
[2021-05-06] MEDS: famotidine 20mg tablet OGT SCH ×2 (07:44→19:08)
[2021-05-06] MEDS: lactobacillus rhamnosus 10,000 MMU CELLS/CAPSULE OGT SCH ×2 (07:44→19:08)
[2021-05-06] MEDS: magnesium oxide 400mg tablet OGT SCH ×2 (07:44→19:14)
[2021-05-06] MEDS: folic acid 1mg tablet OGT SCH (07:44)
[2021-05-06] MEDS: thiamine 100mg tablet OGT SCH (07:44)
[2021-05-06] MEDS: aspirin 81mg, enteric-coated 1 TAB TABLET.DR PO SCH (07:45)
[2021-05-06] MEDS: atorvastatin 20mg tablet PO SCH (07:45)
[2021-05-06] MEDS: metoprolol tartrate 25mg tablet PO SCH ×2 (07:46→19:15)
[2021-05-06] MEDS: docusate sodium 100mg/10ml UD cup OGT SCH (08:00)
[2021-05-06] MEDS: lactulose 20gm/30ml cup OGT SCH (08:00)
[2021-05-06] MEDS: K and/or MAG REPLACEMENT MC SCH ×2 (08:00→19:09)
[2021-05-06] MEDS: magnesium Cl slow-release 64mg tablet PO SCH (19:08)
[2021-05-06] MEDS: insulin glargine (Lantus) pen - multi-dose SQ SCH (19:15)
[2021-05-06] MEDS ORDERED: thiamine 100mg/ml 2ml inj. IV SCH (21:00)
[2021-05-07] MEDS: thiamine inj. 500 MG in normal saline 100ml IV soln 100 ML IV SCH ×3 (00:06→17:54)
[2021-05-07] MEDS: potassium CL 10mEq/100ml bag 100 ML IV PRN ×2 (00:37→03:56)
[2021-05-07 02:00] VITALS: BP 110/53
[2021-05-07] MEDS: ceFAZolin/D5W- 1GM premix 50 ML IV SCH ×4 (02:18→20:06)
[2021-05-07 06:00] VITALS: BP 137/75
[2021-05-07 06:08] LABS: ALANINE AMINOTRANSFERASE 29 U/L (12-78); ALBUMIN 1.8 G/DL (3.4-5.0); ALBUMIN/GLOBULIN RATIO 0.4 (1.1-1.5); ALKALINE PHOSPHATASE 109 IU/L (46-116); ANION GAP 5 (8-16); ASPARTATE AMINO TRANSFERASE 54 U/L (10-37); BILIRUBIN,TOTAL 1.8 MG/DL (0.1-1.0); BLOOD UREA NITROGEN 12 MG/DL (7-18); BUN/CREATININE RATIO 24.5 (6.6-38.0); CHLORIDE 110 MMOL/L (99-107); CREATININE 0.49 MG/DL (0.40-0.90); MAGNESIUM 1.3 MG/DL (1.5-2.4); POTASSIUM 3.6 MMOL/L (3.5-5.1); SODIUM 140 MMOL/L (135-145); TOTAL CARBON DIOXIDE 24.6 MMOL/L (24-32); TOTAL PROTEIN 6.6 G/DL (6.4-8.2); eGFR > 90 ML/MIN
[2021-05-07 06:14] LABS: GLUCOSE 104 MG/DL (70-104)
[2021-05-07 06:37] LABS: BASOPHILS # (AUTO) 0.1 X10'3 (0-0.2); BASOPHILS % (AUTO) 0.6 % (0-1); EOSINOPHILS # (AUTO) 0.2 X10'3 (0-0.9); EOSINOPHILS % (AUTO) 1.2 % (0-6); HEMATOCRIT 32.3 % (35.0-45.0); HEMOGLOBIN 11.2 g/dl (12.0-16.0); LYMPHOCYTES # (AUTO) 2.2 X10'3 (1.1-4.8); LYMPHOCYTES % (AUTO) 16.5 % (21-51); MEAN CORPUSCULAR HEMOGLOBIN 36.2 PG (27.0-31.0); MEAN CORPUSCULAR HGB CONC 34.6 g/dL (33.0-36.5); MEAN CORPUSCULAR VOLUME 104.9 FL (78-98); MEAN PLATELET VOLUME 8.4 FL (7.4-10.4); MONOCYTES # (AUTO) 1.7 X10'3 (0-0.9); MONOCYTES % (AUTO) 12.8 % (2-12); NEUTROPHILS # (AUTO) 9.1 X10'3 (1.8-7.7); NEUTROPHILS % (AUTO) 68.9 % (42-75); PLATELET COUNT 226 X10'3 (140-440); RED BLOOD COUNT 3.08 X10'6 (4.20-5.60); RED CELL DISTRIBUTION WIDTH 16.2 % (11.5-14.5); WHITE BLOOD COUNT 13.2 X10'3 (4.5-11.0)
--- NOTE | 2021-05-07 06:53 | NUR ---
Patient in room PCU 3012. I have received report from Nyla FUCHS and had the opportunity to ask questions and assume patient care.
[2021-05-07] MEDS: clopidogrel 75mg tablet PO SCH (07:45)
[2021-05-07] MEDS: potassium Cl 20 mEq SR tablet PO SCH (07:45)
[2021-05-07] MEDS: lactulose 20gm/30ml cup OGT SCH (07:45)
[2021-05-07] MEDS: lactobacillus rhamnosus 10,000 MMU CELLS/CAPSULE OGT SCH ×2 (07:45→20:03)
[2021-05-07] MEDS: aspirin 81mg, enteric-coated 1 TAB TABLET.DR PO SCH (07:45)
[2021-05-07] MEDS: magnesium Cl slow-release 64mg tablet PO SCH ×2 (07:46→20:03)
[2021-05-07] MEDS: folic acid 1mg tablet OGT SCH (07:46)
[2021-05-07] MEDS: magnesium oxide 400mg tablet OGT SCH ×2 (07:46→20:03)
[2021-05-07] MEDS: famotidine 20mg tablet OGT SCH ×2 (07:46→20:03)
[2021-05-07] MEDS: metoprolol tartrate 25mg tablet PO SCH ×2 (07:46→20:02)
[2021-05-07] MEDS: heparin, porcine 5000 units/ml vial SQ SCH ×2 (07:47→19:59)
[2021-05-07] MEDS: magnesium 2GM in 50ml NS 50 ML IV PRN (07:47)
[2021-05-07] MEDS: K and/or MAG REPLACEMENT MC SCH ×2 (08:00→20:00)
--- NOTE | 2021-05-07 09:50 | NUR ---
F/u 05/07: Pt continues on SB6 diet w/ good PO intake, avg 76% x 8 meals likely meeting close to minimum est nutrient needs. Continues to be A&O x 1 and confused, in restraints, and feeder needed. LBM 05/05 w/ 250ml output to rectal tube noted though pt receiving routine lactulose once daily, now TID. No change to recommendations at this time, will continue to monitor. Rec: 1. Continue SB6/thin/regular diet per FIRE POT OPERATOR/MD recs; encourage PO; assistance w/ meals 2. monitor for PO trends and ONS needs 3. thiamin and folic acid supplementation for etoh hx per MD 4. routine bowel care; Lactulose TID per MD 5. weekly wts Addendum: 05/07/21 at [address] Amended: Links added.
[2021-05-07 11:00] VITALS: BP 134/78
[2021-05-07] MEDS: lactulose 20gm/30ml cup PO SCH ×2 (12:45→19:59)
[2021-05-07 15:00] VITALS: BP 136/74
[2021-05-07] MEDS ORDERED: cyclobenzaprine 10mg tablet PO PRN (16:50)
[2021-05-07 18:00] VITALS: BP 138/68
--- NOTE | 2021-05-07 18:20 | NUR ---
Patient in room PCU 3012. I have received report from Nadira FUCHS and had the opportunity to ask questions and assume patient care.
--- NOTE | 2021-05-07 18:41 | NUR ---
Problems reprioritized. Patient report given, questions answered & plan of care reviewed with Cesia FUCHS.
[2021-05-07] MEDS: rifaximin 550mg tablet PO SCH (20:03)
[2021-05-07] MEDS: methyl salicylate/menthol cream 57gm TP SCH (20:04)
[2021-05-07] MEDS: insulin glargine (Lantus) pen - multi-dose SQ SCH (21:00)
[2021-05-07 22:00] VITALS: BP 134/70
[2021-05-08] MEDS: ceFAZolin/D5W- 1GM premix 50 ML IV SCH ×4 (01:43→20:00)
[2021-05-08 02:00] VITALS: BP 79/70
[2021-05-08 06:00] VITALS: BP 145/82
[2021-05-08 06:19] LABS: BASOPHILS # (AUTO) 0.1 X10'3 (0-0.2); BASOPHILS % (AUTO) 0.5 % (0-1); EOSINOPHILS # (AUTO) 0.3 X10'3 (0-0.9); HEMATOCRIT 31.4 % (35.0-45.0); LYMPHOCYTES # (AUTO) 2.1 X10'3 (1.1-4.8); LYMPHOCYTES % (AUTO) 16.4 % (21-51); MEAN CORPUSCULAR HEMOGLOBIN 36.7 PG (27.0-31.0); MEAN CORPUSCULAR VOLUME 104.6 FL (78-98); MEAN PLATELET VOLUME 7.9 FL (7.4-10.4); MONOCYTES # (AUTO) 1.2 X10'3 (0-0.9); MONOCYTES % (AUTO) 9.6 % (2-12); NEUTROPHILS % (AUTO) 71.5 % (42-75); PLATELET COUNT 212 X10'3 (140-440); RED CELL DISTRIBUTION WIDTH 16.2 % (11.5-14.5); WHITE BLOOD COUNT 12.7 X10'3 (4.5-11.0)
--- NOTE | 2021-05-08 06:20 | NUR ---
Problems reprioritized. Patient report given, questions answered & plan of care reviewed with Nadira FUCHS.
[2021-05-08 06:32] LABS: ALANINE AMINOTRANSFERASE 35 U/L (12-78); ALBUMIN 1.7 G/DL (3.4-5.0); ALBUMIN/GLOBULIN RATIO 0.4 (1.1-1.5); ALKALINE PHOSPHATASE 119 IU/L (46-116); ANION GAP 6 (8-16); ASPARTATE AMINO TRANSFERASE 60 U/L (10-37); BILIRUBIN,TOTAL 1.9 MG/DL (0.1-1.0); BLOOD UREA NITROGEN 10 MG/DL (7-18); CALCIUM 8.1 MG/DL (8.5-10.1); CHLORIDE 108 MMOL/L (99-107); MAGNESIUM 1.4 MG/DL (1.5-2.4); POTASSIUM 3.3 MMOL/L (3.5-5.1); PREALBUMIN 8.3 MG/DL (19-36); SODIUM 138 MMOL/L (135-145); TOTAL CARBON DIOXIDE 23.6 MMOL/L (24-32); TOTAL PROTEIN 6.4 G/DL (6.4-8.2); eGFR > 90 ML/MIN
[2021-05-08 06:37] LABS: GLUCOSE 106 MG/DL (70-104)
[2021-05-08] MEDS: methyl salicylate/menthol cream 57gm TP SCH ×3 (07:18→21:07)
[2021-05-08] MEDS: magnesium 2GM in 50ml NS 50 ML IV PRN (07:18)
[2021-05-08] MEDS: thiamine inj. 500 MG in normal saline 100ml IV soln 100 ML IV SCH ×4 (07:18→15:33)
[2021-05-08] MEDS: clopidogrel 75mg tablet PO SCH (07:19)
[2021-05-08] MEDS: famotidine 20mg tablet OGT SCH ×2 (07:19→20:00)
[2021-05-08] MEDS: aspirin 81mg, enteric-coated 1 TAB TABLET.DR PO SCH (07:19)
[2021-05-08] MEDS: lactulose 20gm/30ml cup PO SCH ×3 (07:19→21:06)
[2021-05-08] MEDS: potassium Cl 20 mEq SR tablet PO SCH (07:19)
[2021-05-08] MEDS: folic acid 1mg tablet OGT SCH (07:20)
[2021-05-08] MEDS: metoprolol tartrate 25mg tablet PO SCH ×2 (07:20→20:00)
[2021-05-08] MEDS: magnesium oxide 400mg tablet OGT SCH ×2 (07:20→20:00)
[2021-05-08] MEDS: lactobacillus rhamnosus 10,000 MMU CELLS/CAPSULE OGT SCH ×2 (07:20→20:00)
[2021-05-08] MEDS: rifaximin 550mg tablet PO SCH ×2 (07:20→20:00)
[2021-05-08] MEDS: magnesium Cl slow-release 64mg tablet PO SCH ×2 (07:20→20:00)
[2021-05-08] MEDS: heparin, porcine 5000 units/ml vial SQ SCH ×2 (07:21→20:00)
[2021-05-08] MEDS: K and/or MAG REPLACEMENT MC SCH ×2 (07:40→20:00)
[2021-05-08] MEDS: potassium CL 10mEq/100ml bag 100 ML IV PRN ×4 (10:06→13:46)
[2021-05-08 11:00] VITALS: BP 133/75
[2021-05-08 15:00] VITALS: BP 120/74
[2021-05-08] MEDS: magnesium 4gm in 100ml NS 100 ML IV PRN (15:33)
[2021-05-08 18:00] VITALS: BP 147/92
--- NOTE | 2021-05-08 18:09 | NUR ---
Problems reprioritized. Patient report given, questions answered & plan of care reviewed with Cesia FUCHS.
--- NOTE | 2021-05-08 20:29 | NUR ---
Patient in room PCU 3012. I have received report from Nadira FUCHS and had the opportunity to ask questions and assume patient care.
[2021-05-08] MEDS: insulin glargine (Lantus) pen - multi-dose SQ SCH (21:00)
[2021-05-08 22:00] VITALS: BP 134/74
[2021-05-09] MEDS: thiamine inj. 500 MG in normal saline 100ml IV soln 100 ML IV SCH (00:27)
[2021-05-09 02:00] VITALS: BP 133/75
[2021-05-09] MEDS: ceFAZolin/D5W- 1GM premix 50 ML IV SCH ×4 (02:41→19:34)
[2021-05-09 06:00] VITALS: BP 126/68
--- NOTE | 2021-05-09 07:01 | NUR ---
Patient in room PCU 3012. I have received report from Cesia FUCHS and had the opportunity to ask questions and assume patient care.
[2021-05-09 07:23] LABS: BASOPHILS # (AUTO) 0.1 X10'3 (0-0.2); EOSINOPHILS # (AUTO) 0.4 X10'3 (0-0.9); EOSINOPHILS % (AUTO) 3.1 % (0-6); HEMATOCRIT 29.2 % (35.0-45.0); HEMOGLOBIN 9.8 g/dl (12.0-16.0); LYMPHOCYTES # (AUTO) 2.4 X10'3 (1.1-4.8); LYMPHOCYTES % (AUTO) 20.4 % (21-51); MEAN CORPUSCULAR HEMOGLOBIN 35.6 PG (27.0-31.0); MEAN CORPUSCULAR HGB CONC 33.6 g/dL (33.0-36.5); MONOCYTES # (AUTO) 1.2 X10'3 (0-0.9); MONOCYTES % (AUTO) 10.4 % (2-12); NEUTROPHILS # (AUTO) 7.6 X10'3 (1.8-7.7); NEUTROPHILS % (AUTO) 65.1 % (42-75); PLATELET COUNT 247 X10'3 (140-440); RED BLOOD COUNT 2.75 X10'6 (4.20-5.60); RED CELL DISTRIBUTION WIDTH 16.7 % (11.5-14.5); WHITE BLOOD COUNT 11.7 X10'3 (4.5-11.0)
[2021-05-09 07:32] LABS: ALANINE AMINOTRANSFERASE 36 U/L (12-78); ALBUMIN 1.7 G/DL (3.4-5.0); ALBUMIN/GLOBULIN RATIO 0.4 (1.1-1.5); ALKALINE PHOSPHATASE 114 IU/L (46-116); ANION GAP 7 (8-16); ASPARTATE AMINO TRANSFERASE 59 U/L (10-37); BILIRUBIN,TOTAL 1.7 MG/DL (0.1-1.0); BLOOD UREA NITROGEN 12 MG/DL (7-18); BUN/CREATININE RATIO 22.6 (6.6-38.0); CALCIUM 8.1 MG/DL (8.5-10.1); CHLORIDE 111 MMOL/L (99-107); CREATININE 0.53 MG/DL (0.40-0.90); GLUCOSE 96 MG/DL (70-104); MAGNESIUM 1.8 MG/DL (1.5-2.4); POTASSIUM 3.5 MMOL/L (3.5-5.1); SODIUM 140 MMOL/L (135-145); TOTAL CARBON DIOXIDE 22.2 MMOL/L (24-32); TOTAL PROTEIN 6.5 G/DL (6.4-8.2); eGFR > 90 ML/MIN
[2021-05-09] MEDS: methyl salicylate/menthol cream 57gm TP SCH ×3 (07:56→19:44)
[2021-05-09] MEDS: potassium CL 10mEq/100ml bag 100 ML IV PRN ×4 (07:56→15:51)
[2021-05-09] MEDS: heparin, porcine 5000 units/ml vial SQ SCH ×2 (07:57→19:34)
[2021-05-09] MEDS: famotidine 20mg tablet OGT SCH ×2 (07:57→19:37)
[2021-05-09] MEDS: aspirin 81mg, enteric-coated 1 TAB TABLET.DR PO SCH (07:57)
[2021-05-09] MEDS: clopidogrel 75mg tablet PO SCH (07:57)
[2021-05-09] MEDS: magnesium oxide 400mg tablet OGT SCH ×2 (07:57→19:37)
[2021-05-09] MEDS: lactobacillus rhamnosus 10,000 MMU CELLS/CAPSULE OGT SCH ×2 (07:58→19:37)
[2021-05-09] MEDS: potassium Cl 20 mEq SR tablet PO SCH (07:58)
[2021-05-09] MEDS: metoprolol tartrate 25mg tablet PO SCH ×2 (07:58→19:44)
[2021-05-09] MEDS: rifaximin 550mg tablet PO SCH ×2 (07:58→19:36)
[2021-05-09] MEDS: magnesium Cl slow-release 64mg tablet PO SCH ×2 (07:58→19:36)
[2021-05-09] MEDS: folic acid 1mg tablet OGT SCH (07:58)
[2021-05-09] MEDS: lactulose 20gm/30ml cup PO SCH ×3 (07:58→19:44)
[2021-05-09] MEDS: K and/or MAG REPLACEMENT MC SCH ×2 (08:00→19:27)
[2021-05-09 11:00] VITALS: BP 142/78
[2021-05-09 15:00] VITALS: BP 127/75
--- NOTE | 2021-05-09 18:26 | NUR ---
Problems reprioritized. Patient report given, questions answered & plan of care reviewed with Terri FUCHS.
[2021-05-09] MEDS: insulin glargine (Lantus) pen - multi-dose SQ SCH (19:28)
[2021-05-09 19:52] VITALS: BP 128/71
[2021-05-09 22:00] VITALS: BP 125/71
[2021-05-10 02:00] VITALS: BP 134/76
[2021-05-10] MEDS: ceFAZolin/D5W- 1GM premix 50 ML IV SCH ×2 (02:00→07:38)
[2021-05-10 06:00] VITALS: BP 134/73
--- NOTE | 2021-05-10 07:03 | NUR ---
Patient in room PCU 3012. I have received report from Nyla FUCHS and had the opportunity to ask questions and assume patient care.
[2021-05-10 07:38] LABS: MAGNESIUM 1.4 MG/DL (1.5-2.4)
[2021-05-10] MEDS: clopidogrel 75mg tablet PO SCH (07:38)
[2021-05-10] MEDS: lactobacillus rhamnosus 10,000 MMU CELLS/CAPSULE OGT SCH ×2 (07:38→21:35)
[2021-05-10] MEDS: magnesium oxide 400mg tablet OGT SCH ×2 (07:38→21:35)
[2021-05-10] MEDS: famotidine 20mg tablet OGT SCH ×2 (07:38→21:35)
[2021-05-10] MEDS: lactulose 20gm/30ml cup PO SCH ×3 (07:38→21:42)
[2021-05-10] MEDS: magnesium Cl slow-release 64mg tablet PO SCH ×2 (07:38→21:35)
[2021-05-10] MEDS: folic acid 1mg tablet OGT SCH (07:39)
[2021-05-10] MEDS: metoprolol tartrate 25mg tablet PO SCH ×2 (07:39→21:41)
[2021-05-10] MEDS: aspirin 81mg, enteric-coated 1 TAB TABLET.DR PO SCH (07:39)
[2021-05-10] MEDS: methyl salicylate/menthol cream 57gm TP SCH ×3 (07:39→22:10)
[2021-05-10] MEDS: rifaximin 550mg tablet PO SCH ×2 (07:39→22:55)
[2021-05-10] MEDS: potassium Cl 20 mEq SR tablet PO SCH (07:39)
[2021-05-10] MEDS: heparin, porcine 5000 units/ml vial SQ SCH ×2 (07:46→22:09)
[2021-05-10] MEDS: K and/or MAG REPLACEMENT MC SCH ×2 (08:00→20:00)
[2021-05-10] MEDS: magnesium 2GM in 50ml NS 50 ML IV PRN (08:05)
[2021-05-10 09:47] LABS: ALANINE AMINOTRANSFERASE 40 U/L (12-78); ALBUMIN 1.6 G/DL (3.4-5.0); ALBUMIN/GLOBULIN RATIO 0.4 (1.1-1.5); ALKALINE PHOSPHATASE 115 IU/L (46-116); ANION GAP 11 (8-16); ASPARTATE AMINO TRANSFERASE 57 U/L (10-37); BILIRUBIN,TOTAL 1.3 MG/DL (0.1-1.0); BLOOD UREA NITROGEN 10 MG/DL (7-18); BUN/CREATININE RATIO 20.8 (6.6-38.0); CALCIUM 8.2 MG/DL (8.5-10.1); CHLORIDE 111 MMOL/L (99-107); CREATININE 0.48 MG/DL (0.40-0.90); GLUCOSE 93 MG/DL (70-104); POTASSIUM 3.7 MMOL/L (3.5-5.1); SODIUM 140 MMOL/L (135-145); TOTAL CARBON DIOXIDE 18.3 MMOL/L (24-32); TOTAL PROTEIN 5.7 G/DL (6.4-8.2); eGFR > 90 ML/MIN
[2021-05-10 11:00] VITALS: BP 120/67
[2021-05-10] MEDS: magnesium 4gm in 100ml NS 100 ML IV PRN (11:17)
--- NOTE | 2021-05-10 13:32 | NUR ---
report given to Antoine FUCHS. pt to transfer to surgical floor 354A.
[2021-05-10] MEDS ORDERED: insulin Lispro (HumaLOG) vial - multi-dose SQ SCH (14:02)
[2021-05-10 18:00] VITALS: BP 142/83
[2021-05-10] MEDS: insulin glargine (Lantus) pen - multi-dose SQ SCH (21:00)
[2021-05-10] MEDS: temazepam 15mg capsule OGT PRN (23:01)
[2021-05-11] VITALS: BP 136/72
--- NOTE | 2021-05-11 06:56 | NUR ---
Patient in room [facility] 354A. I have received report from SHILA HERBERT and had the opportunity to ask questions and assume patient care.
[2021-05-11 07:00] VITALS: BP 133/75
[2021-05-11] MEDS: K and/or MAG REPLACEMENT MC SCH ×2 (08:00→18:55)
--- NOTE | 2021-05-11 09:16 | NUR ---
Reassessment: Pt continues on SB6 diet w/ good PO intake, avg 75% x 9 meals likely meeting close to minimum est energy needs; only meeting ~65% of estimated protein needs. Continues to be A&O x 1 and confused, and feeder needed. Pt could benefit from increased protein portions w/ meals to help meet protein needs, d/w dietary. LBM 05/10, receiving lactulose TID. Will continue to monitor. Recommendations: 1. Continue SB6/thin/regular diet per EXPERIMENTAL ASSEMBLER/MD recs; encourage PO; assistance w/ meals 2. Double eggs w/ breakfast and cottage cheese w/ fruit BIDLD 3. monitor for PO trends and ONS needs 4. folic acid supplementation for etoh hx per MD 5. routine bowel care; Lactulose TID per MD 6. weekly wts Addendum: 05/11/21 at [address] Amended: Links added. Addendum: 05/11/21 at [address] I have reviewed assessment by Actuarial Manager
[2021-05-11] MEDS: methyl salicylate/menthol cream 57gm TP SCH ×3 (09:39→20:35)
[2021-05-11] MEDS: lactulose 20gm/30ml cup PO SCH ×3 (09:39→20:31)
[2021-05-11] MEDS: magnesium Cl slow-release 64mg tablet PO SCH ×2 (09:40→11:12)
[2021-05-11] MEDS: rifaximin 550mg tablet PO SCH ×2 (09:40→19:39)
[2021-05-11] MEDS: aspirin 81mg, enteric-coated 1 TAB TABLET.DR PO SCH (09:40)
[2021-05-11] MEDS: potassium Cl 20 mEq SR tablet PO SCH (09:40)
[2021-05-11] MEDS: clopidogrel 75mg tablet PO SCH (09:40)
[2021-05-11] MEDS: heparin, porcine 5000 units/ml vial SQ SCH ×2 (09:43→19:42)
[2021-05-11] MEDS: metoprolol tartrate 25mg tablet PO SCH ×2 (09:48→19:41)
[2021-05-11] MEDS ORDERED: acetaminophen 325mg tablet PO PRN ×2 (10:15)
[2021-05-11 10:16] LABS: MAGNESIUM 1.8 MG/DL (1.5-2.4); PREALBUMIN 9.8 MG/DL (19-36)
[2021-05-11] MEDS ORDERED: diphenhydrAMINE 25mg capsule PO PRN (10:20)
[2021-05-11] MEDS ORDERED: mag hydrox/Alum hydrox/simeth 30ml oral suspension PO PRN (10:25)
[2021-05-11] MEDS ORDERED: magnesium hydroxide 30ml (MOM) UD suspension PO PRN (10:26)
[2021-05-11] MEDS ORDERED: ondansetron 4mg rapidly disintigrating tab PO PRN (10:27)
[2021-05-11 11:00] VITALS: BP 127/67
[2021-05-11] MEDS: lactobacillus rhamnosus 10,000 MMU CELLS/CAPSULE PO SCH ×2 (11:12→19:40)
[2021-05-11] MEDS: famotidine 20mg tablet PO SCH ×2 (11:12→19:39)
[2021-05-11] MEDS: folic acid 1mg tablet PO SCH (11:12)
[2021-05-11 18:00] VITALS: BP 151/80
--- NOTE | 2021-05-11 18:45 | NUR ---
Problems reprioritized. Patient report given, questions answered & plan of care reviewed with SHILA HERBERT.
[2021-05-11] MEDS: magnesium oxide 400mg tablet PO SCH (19:40)
[2021-05-11] MEDS: temazepam 15mg capsule PO PRN (20:36)
[2021-05-12] VITALS: BP 106/61
--- NOTE | 2021-05-12 06:30 | NUR ---
Patient in room [facility] 354. I have received report from SHILA Weaver and had the opportunity to ask questions and assume patient care.
[2021-05-12 07:02] LABS: MAGNESIUM 1.4 MG/DL (1.5-2.4)
[2021-05-12 08:00] VITALS: BP 139/75
[2021-05-12] MEDS: K and/or MAG REPLACEMENT MC SCH ×2 (08:00→20:00)
[2021-05-12 11:00] VITALS: BP 140/69
[2021-05-12] MEDS: famotidine 20mg tablet PO SCH ×2 (11:18→19:51)
[2021-05-12] MEDS: metoprolol tartrate 25mg tablet PO SCH ×2 (11:18→19:55)
[2021-05-12] MEDS: aspirin 81mg, enteric-coated 1 TAB TABLET.DR PO SCH (11:18)
[2021-05-12] MEDS: rifaximin 550mg tablet PO SCH ×2 (11:18→19:51)
[2021-05-12] MEDS: lactobacillus rhamnosus 10,000 MMU CELLS/CAPSULE PO SCH ×2 (11:18→19:51)
[2021-05-12] MEDS: folic acid 1mg tablet PO SCH (11:18)
[2021-05-12] MEDS: clopidogrel 75mg tablet PO SCH (11:18)
[2021-05-12] MEDS: potassium Cl 20 mEq SR tablet PO SCH (11:19)
[2021-05-12] MEDS: heparin, porcine 5000 units/ml vial SQ SCH ×2 (11:19→19:52)
[2021-05-12] MEDS: methyl salicylate/menthol cream 57gm TP SCH ×2 (11:21→20:00)
[2021-05-12] MEDS: magnesium oxide 400mg tablet PO SCH ×2 (11:22→19:51)
[2021-05-12] MEDS: magnesium Cl slow-release 64mg tablet PO SCH ×2 (11:22→19:51)
[2021-05-12 12:35] LABS: BASOPHILS # (AUTO) 0.1 X10'3 (0-0.2); BASOPHILS % (AUTO) 1.3 % (0-1); EOSINOPHILS # (AUTO) 0.3 X10'3 (0-0.9); EOSINOPHILS % (AUTO) 2.8 % (0-6); HEMATOCRIT 31.5 % (35.0-45.0); HEMOGLOBIN 10.7 g/dl (12.0-16.0); LYMPHOCYTES # (AUTO) 1.7 X10'3 (1.1-4.8); LYMPHOCYTES % (AUTO) 18.6 % (21-51); MEAN CORPUSCULAR HEMOGLOBIN 36.3 PG (27.0-31.0); MEAN CORPUSCULAR HGB CONC 34.1 g/dL (33.0-36.5); MEAN CORPUSCULAR VOLUME 106.4 FL (78-98); MEAN PLATELET VOLUME 7.5 FL (7.4-10.4); MONOCYTES # (AUTO) 0.8 X10'3 (0-0.9); MONOCYTES % (AUTO) 9.1 % (2-12); NEUTROPHILS # (AUTO) 6.3 X10'3 (1.8-7.7); NEUTROPHILS % (AUTO) 68.2 % (42-75); PLATELET COUNT 257 X10'3 (140-440); RED BLOOD COUNT 2.96 X10'6 (4.20-5.60); RED CELL DISTRIBUTION WIDTH 16.8 % (11.5-14.5); WHITE BLOOD COUNT 9.2 X10'3 (4.5-11.0)
[2021-05-12 12:39] LABS: ALBUMIN 1.8 G/DL (3.4-5.0); ANION GAP 9 (8-16); BLOOD UREA NITROGEN 12 MG/DL (7-18); BUN/CREATININE RATIO 20.7 (6.6-38.0); CALCIUM 8.8 MG/DL (8.5-10.1); CHLORIDE 109 MMOL/L (99-107); CREATININE 0.58 MG/DL (0.40-0.90); POTASSIUM 4.1 MMOL/L (3.5-5.1); SODIUM 141 MMOL/L (135-145); TOTAL CARBON DIOXIDE 23.4 MMOL/L (24-32); eGFR > 90 ML/MIN
[2021-05-12 12:40] LABS: GLUCOSE 123 MG/DL (70-104)
[2021-05-12 18:00] VITALS: BP 130/74
--- NOTE | 2021-05-12 18:10 | NUR ---
Problems reprioritized. Patient report given, questions answered & plan of care reviewed with SHILA Villareal.
--- NOTE | 2021-05-12 19:04 | NUR ---
Patient in room [facility] 354. I have received report from SHILA Hunt and had the opportunity to ask questions and assume patient care.
[2021-05-12] MEDS: nystatin 15 GM powder TP SCH (19:55)
[2021-05-13] VITALS: BP 124/65
--- NOTE | 2021-05-13 06:10 | NUR ---
Patient in room [facility] 354. I have received report from SHILA Villareal and had the opportunity to ask questions and assume patient care.
[2021-05-13 06:30] VITALS: BP 129/76
[2021-05-13 06:31] LABS: BASOPHILS # (AUTO) 0.1 X10'3 (0-0.2); BASOPHILS % (AUTO) 1.2 % (0-1); EOSINOPHILS # (AUTO) 0.4 X10'3 (0-0.9); EOSINOPHILS % (AUTO) 4.9 % (0-6); HEMATOCRIT 26.4 % (35.0-45.0); HEMOGLOBIN 9.4 g/dl (12.0-16.0); LYMPHOCYTES # (AUTO) 2.7 X10'3 (1.1-4.8); LYMPHOCYTES % (AUTO) 31.1 % (21-51); MEAN CORPUSCULAR HEMOGLOBIN 37.5 PG (27.0-31.0); MEAN CORPUSCULAR HGB CONC 35.6 g/dL (33.0-36.5); MEAN CORPUSCULAR VOLUME 105.5 FL (78-98); MEAN PLATELET VOLUME 7.3 FL (7.4-10.4); MONOCYTES # (AUTO) 0.9 X10'3 (0-0.9); MONOCYTES % (AUTO) 10.1 % (2-12); NEUTROPHILS # (AUTO) 4.6 X10'3 (1.8-7.7); NEUTROPHILS % (AUTO) 52.7 % (42-75); PLATELET COUNT 211 X10'3 (140-440); RED BLOOD COUNT 2.51 X10'6 (4.20-5.60); RED CELL DISTRIBUTION WIDTH 16.9 % (11.5-14.5); WHITE BLOOD COUNT 8.7 X10'3 (4.5-11.0)
--- NOTE | 2021-05-13 06:33 | NUR ---
Problems reprioritized. Patient report given, questions answered & plan of care reviewed with SHILA Hunt.
[2021-05-13 06:34] LABS: ALBUMIN 1.6 G/DL (3.4-5.0); ANION GAP 7 (8-16); BLOOD UREA NITROGEN 15 MG/DL (7-18); BUN/CREATININE RATIO 30.6 (6.6-38.0); CALCIUM 8.3 MG/DL (8.5-10.1); CHLORIDE 111 MMOL/L (99-107); CREATININE 0.49 MG/DL (0.40-0.90); GLUCOSE 91 MG/DL (70-104); MAGNESIUM 1.4 MG/DL (1.5-2.4); POTASSIUM 3.7 MMOL/L (3.5-5.1); SODIUM 141 MMOL/L (135-145); TOTAL CARBON DIOXIDE 23.1 MMOL/L (24-32); eGFR > 90 ML/MIN
[2021-05-13] MEDS: K and/or MAG REPLACEMENT MC SCH ×2 (08:38→20:00)
[2021-05-13] MEDS: metoprolol tartrate 25mg tablet PO SCH ×2 (10:48→20:51)
[2021-05-13] MEDS: folic acid 1mg tablet PO SCH (10:48)
[2021-05-13] MEDS: aspirin 81mg, enteric-coated 1 TAB TABLET.DR PO SCH (10:48)
[2021-05-13] MEDS: magnesium Cl slow-release 64mg tablet PO SCH ×2 (10:49→20:50)
[2021-05-13] MEDS: clopidogrel 75mg tablet PO SCH (10:49)
[2021-05-13] MEDS: lactobacillus rhamnosus 10,000 MMU CELLS/CAPSULE PO SCH ×2 (10:49→20:52)
[2021-05-13] MEDS: famotidine 20mg tablet PO SCH ×2 (10:49→20:50)
[2021-05-13] MEDS: rifaximin 550mg tablet PO SCH ×2 (10:49→20:52)
[2021-05-13] MEDS: potassium Cl 20 mEq SR tablet PO SCH (10:49)
[2021-05-13] MEDS: magnesium oxide 400mg tablet PO SCH ×2 (10:49→20:49)
[2021-05-13] MEDS: lactulose 20gm/30ml cup PO SCH (10:50)
[2021-05-13] MEDS: heparin, porcine 5000 units/ml vial SQ SCH ×2 (10:51→20:49)
[2021-05-13] MEDS: methyl salicylate/menthol cream 57gm TP SCH ×2 (10:52→20:54)
[2021-05-13] MEDS: nystatin 15 GM powder TP SCH ×2 (10:52→20:54)
[2021-05-13] MEDS ORDERED: LORazepam 2 mg/ml vial IV PRN (14:25)
[2021-05-13 18:00] VITALS: BP 123/69
--- NOTE | 2021-05-13 18:50 | NUR ---
Problems reprioritized. Patient report given, questions answered & plan of care reviewed with SHILA Finch.
[2021-05-13] MEDS ORDERED: GADOTERATE MEGLUMINE 7.5 MMOL/15 ML VIAL IV ONE (18:51)
--- NOTE | 2021-05-13 18:59 | NUR ---
Patient in room [facility] 354. I have received report from Dana FUCHS and had the opportunity to ask questions and assume patient care.
[2021-05-14] VITALS: BP 116/66
[2021-05-14 05:59] LABS: BASOPHILS # (AUTO) 0.1 X10'3 (0-0.2); BASOPHILS % (AUTO) 1.2 % (0-1); EOSINOPHILS # (AUTO) 0.4 X10'3 (0-0.9); EOSINOPHILS % (AUTO) 4.8 % (0-6); HEMATOCRIT 28.8 % (35.0-45.0); HEMOGLOBIN 9.9 g/dl (12.0-16.0); LYMPHOCYTES # (AUTO) 2.4 X10'3 (1.1-4.8); LYMPHOCYTES % (AUTO) 28.1 % (21-51); MEAN CORPUSCULAR HEMOGLOBIN 36.1 PG (27.0-31.0); MEAN CORPUSCULAR HGB CONC 34.2 g/dL (33.0-36.5); MEAN CORPUSCULAR VOLUME 105.7 FL (78-98); MEAN PLATELET VOLUME 7.2 FL (7.4-10.4); MONOCYTES # (AUTO) 0.8 X10'3 (0-0.9); MONOCYTES % (AUTO) 9.5 % (2-12); NEUTROPHILS # (AUTO) 4.7 X10'3 (1.8-7.7); NEUTROPHILS % (AUTO) 56.4 % (42-75); PLATELET COUNT 192 X10'3 (140-440); RED BLOOD COUNT 2.73 X10'6 (4.20-5.60); RED CELL DISTRIBUTION WIDTH 16.6 % (11.5-14.5); WHITE BLOOD COUNT 8.4 X10'3 (4.5-11.0)
[2021-05-14 06:30] VITALS: BP 135/72
--- NOTE | 2021-05-14 06:30 | NUR ---
Patient in room [facility] 354. I have received report from SHILA Finch and had the opportunity to ask questions and assume patient care.
[2021-05-14 07:48] LABS: ALBUMIN 1.6 G/DL (3.4-5.0); ANION GAP 9 (8-16); BLOOD UREA NITROGEN 12 MG/DL (7-18); BUN/CREATININE RATIO 27.3 (6.6-38.0); CALCIUM 8.2 MG/DL (8.5-10.1); CHLORIDE 114 MMOL/L (99-107); CREATININE 0.44 MG/DL (0.40-0.90); MAGNESIUM 1.6 MG/DL (1.5-2.4); POTASSIUM 3.7 MMOL/L (3.5-5.1); SODIUM 144 MMOL/L (135-145); TOTAL CARBON DIOXIDE 21.1 MMOL/L (24-32); eGFR > 90 ML/MIN
[2021-05-14 07:52] LABS: GLUCOSE 97 MG/DL (70-104)
[2021-05-14] MEDS: K and/or MAG REPLACEMENT MC SCH ×2 (08:00→20:00)
[2021-05-14] MEDS: magnesium Cl slow-release 64mg tablet PO SCH ×2 (09:32→20:02)
[2021-05-14] MEDS: potassium Cl 20 mEq SR tablet PO SCH (09:33)
[2021-05-14] MEDS: folic acid 1mg tablet PO SCH (09:33)
[2021-05-14] MEDS: clopidogrel 75mg tablet PO SCH (09:33)
[2021-05-14] MEDS: metoprolol tartrate 25mg tablet PO SCH ×2 (09:33→20:02)
[2021-05-14] MEDS: rifaximin 550mg tablet PO SCH ×2 (09:33→20:01)
[2021-05-14] MEDS: lactobacillus rhamnosus 10,000 MMU CELLS/CAPSULE PO SCH ×2 (09:33→20:03)
[2021-05-14] MEDS: aspirin 81mg, enteric-coated 1 TAB TABLET.DR PO SCH (09:33)
[2021-05-14] MEDS: magnesium oxide 400mg tablet PO SCH ×2 (09:34→20:03)
[2021-05-14] MEDS: famotidine 20mg tablet PO SCH ×2 (09:34→20:02)
[2021-05-14] MEDS: lactulose 20gm/30ml cup PO SCH (09:34)
[2021-05-14] MEDS: heparin, porcine 5000 units/ml vial SQ SCH ×2 (09:35→20:00)
[2021-05-14] MEDS: methyl salicylate/menthol cream 57gm TP SCH ×2 (09:36→20:16)
[2021-05-14] MEDS: nystatin 15 GM powder TP SCH ×2 (09:36→20:16)
[2021-05-14 11:00] VITALS: BP 112/66
[2021-05-14] MEDS ORDERED: iohexol 350MG/ML 100ml bottle IV ONE (14:22)
[2021-05-14 18:00] VITALS: BP 133/70
--- NOTE | 2021-05-14 18:25 | NUR ---
Problems reprioritized. Patient report given, questions answered & plan of care reviewed with SHILA Mejia.
--- NOTE | 2021-05-14 18:54 | NUR ---
Patient in room [facility] 354. I have received report from Marilee FUCHS and had the opportunity to ask questions and assume patient care.
[2021-05-14] MEDS: temazepam 15mg capsule PO PRN (20:03)
[2021-05-15] VITALS: BP 106/61
[2021-05-15 06:02] LABS: BASOPHILS # (AUTO) 0.1 X10'3 (0-0.2); BASOPHILS % (AUTO) 1.7 % (0-1); EOSINOPHILS # (AUTO) 0.5 X10'3 (0-0.9); EOSINOPHILS % (AUTO) 6.3 % (0-6); HEMATOCRIT 27.6 % (35.0-45.0); HEMOGLOBIN 9.6 g/dl (12.0-16.0); LYMPHOCYTES # (AUTO) 2.1 X10'3 (1.1-4.8); LYMPHOCYTES % (AUTO) 28.9 % (21-51); MEAN CORPUSCULAR HEMOGLOBIN 37.1 PG (27.0-31.0); MEAN CORPUSCULAR HGB CONC 34.7 g/dL (33.0-36.5); MEAN CORPUSCULAR VOLUME 107.1 FL (78-98); MEAN PLATELET VOLUME 7.4 FL (7.4-10.4); MONOCYTES # (AUTO) 0.9 X10'3 (0-0.9); MONOCYTES % (AUTO) 12.2 % (2-12); NEUTROPHILS # (AUTO) 3.7 X10'3 (1.8-7.7); NEUTROPHILS % (AUTO) 50.9 % (42-75); PLATELET COUNT 169 X10'3 (140-440); RED BLOOD COUNT 2.58 X10'6 (4.20-5.60); RED CELL DISTRIBUTION WIDTH 17.1 % (11.5-14.5); WHITE BLOOD COUNT 7.3 X10'3 (4.5-11.0)
--- NOTE | 2021-05-15 06:29 | NUR ---
Problems reprioritized. Patient report given, questions answered & plan of care reviewed with Alexus FUCHS.
[2021-05-15 06:42] LABS: ALANINE AMINOTRANSFERASE 33 U/L (12-78); ALBUMIN 1.5 G/DL (3.4-5.0); ALBUMIN/GLOBULIN RATIO 0.4 (1.1-1.5); ALKALINE PHOSPHATASE 112 IU/L (46-116); ANION GAP 7 (8-16); ASPARTATE AMINO TRANSFERASE 44 U/L (10-37); BILIRUBIN,TOTAL 0.9 MG/DL (0.1-1.0); BLOOD UREA NITROGEN 12 MG/DL (7-18); BUN/CREATININE RATIO 20.7 (6.6-38.0); CALCIUM 8.3 MG/DL (8.5-10.1); CHLORIDE 111 MMOL/L (99-107); CREATININE 0.58 MG/DL (0.40-0.90); MAGNESIUM 1.5 MG/DL (1.5-2.4); POTASSIUM 3.5 MMOL/L (3.5-5.1); SODIUM 142 MMOL/L (135-145); TOTAL CARBON DIOXIDE 24.4 MMOL/L (24-32); TOTAL PROTEIN 5.5 G/DL (6.4-8.2); eGFR > 90 ML/MIN
[2021-05-15 06:44] LABS: GLUCOSE 103 MG/DL (70-104)
[2021-05-15] MEDS: K and/or MAG REPLACEMENT MC SCH ×2 (08:00→20:00)
[2021-05-15] MEDS: rifaximin 550mg tablet PO SCH ×2 (08:07→22:03)
[2021-05-15] MEDS: aspirin 81mg, enteric-coated 1 TAB TABLET.DR PO SCH (08:07)
[2021-05-15] MEDS: clopidogrel 75mg tablet PO SCH (08:07)
[2021-05-15] MEDS: potassium Cl 20 mEq SR tablet PO SCH (08:07)
[2021-05-15] MEDS: atorvastatin 20mg tablet PO SCH (08:08)
[2021-05-15] MEDS: magnesium Cl slow-release 64mg tablet PO SCH ×2 (08:08→22:04)
[2021-05-15] MEDS: lactobacillus rhamnosus 10,000 MMU CELLS/CAPSULE PO SCH ×2 (08:08→22:04)
[2021-05-15] MEDS: magnesium oxide 400mg tablet PO SCH ×2 (08:08→22:04)
[2021-05-15] MEDS: folic acid 1mg tablet PO SCH (08:08)
[2021-05-15] MEDS: famotidine 20mg tablet PO SCH ×2 (08:08→22:04)
[2021-05-15] MEDS: metoprolol tartrate 25mg tablet PO SCH ×2 (08:09→22:05)
[2021-05-15] MEDS: methyl salicylate/menthol cream 57gm TP SCH ×2 (08:10→20:00)
[2021-05-15] MEDS: heparin, porcine 5000 units/ml vial SQ SCH ×2 (08:10→22:06)
[2021-05-15] MEDS: nystatin 15 GM powder TP SCH ×2 (08:10→22:16)
[2021-05-15 08:22] VITALS: BP 130/70
--- NOTE | 2021-05-15 10:02 | NUR ---
Reassessment: Pt dx subacute left temporal infarct per EMR; advanced to regular diet per JOGGLE PRESS OPERATOR and MD. PO intake ~75% of regular meals w/ cottage cheese and fruit BIDLD, though noted low PO intake 05/13; partially meeting estimated nutritional needs. Pt could benefit from MVI to help address increasing MCV labs given hx EtOH if MD agreeable; electrical intern d/w nurse. LBM 05/13, receiving lactulose daily. Will continue to monitor. Recommendations: 1. Continue regular diet per JOGGLE PRESS OPERATOR/MD recs; encourage PO 2. Cottage cheese w/ fruit BIDLD 3. Monitor for PO trends and ONS needs 4. MVI supplementation for etoh hx per MD 5. routine bowel care; Lactulose per MD 6. weekly wts Addendum: 05/15/21 at [address] Amended: Links added. Addendum: 05/15/21 at [address] RENÉE has reviewed and approves of above note.
--- NOTE | 2021-05-15 10:25 | NUR ---
dr zapata made aware in person of dietitian request for multivitamin. VO obtained
[2021-05-15 11:00] VITALS: BP 110/65
[2021-05-15] MEDS: lactulose 20gm/30ml cup PO SCH (12:39)
[2021-05-15 18:00] VITALS: BP 128/64
--- NOTE | 2021-05-15 18:50 | NUR ---
Patient in room [facility] 359. I have received report from Alexus FUCHS and had the opportunity to ask questions and assume patient care.
[2021-05-16] VITALS: BP 105/57
--- NOTE | 2021-05-16 06:40 | NUR ---
Problems reprioritized. Patient report given, questions answered & plan of care reviewed with Bang FUCHS.
[2021-05-16] MEDS: K and/or MAG REPLACEMENT MC SCH ×2 (08:00→20:00)
[2021-05-16] MEDS: methyl salicylate/menthol cream 57gm TP SCH ×2 (08:00→20:00)
[2021-05-16 08:27] LABS: BASOPHILS # (AUTO) 0.1 X10'3 (0-0.2); BASOPHILS % (AUTO) 1.2 % (0-1); EOSINOPHILS # (AUTO) 0.4 X10'3 (0-0.9); HEMATOCRIT 31.2 % (35.0-45.0); HEMOGLOBIN 10.7 g/dl (12.0-16.0); LYMPHOCYTES % (AUTO) 25.8 % (21-51); MEAN CORPUSCULAR HEMOGLOBIN 36.7 PG (27.0-31.0); MEAN CORPUSCULAR HGB CONC 34.4 g/dL (33.0-36.5); MEAN CORPUSCULAR VOLUME 106.7 FL (78-98); MEAN PLATELET VOLUME 7.4 FL (7.4-10.4); MONOCYTES # (AUTO) 0.7 X10'3 (0-0.9); MONOCYTES % (AUTO) 9.3 % (2-12); NEUTROPHILS # (AUTO) 4.6 X10'3 (1.8-7.7); NEUTROPHILS % (AUTO) 58.7 % (42-75); PLATELET COUNT 185 X10'3 (140-440); RED BLOOD COUNT 2.92 X10'6 (4.20-5.60); WHITE BLOOD COUNT 7.7 X10'3 (4.5-11.0)
--- NOTE | 2021-05-16 08:45 | NUR ---
Reported to Dr. Aguilar that patient has been cooperative with staff and calm. I recommended to discontinue sitter order at this time. Dr. Aguilar agreed to discontinue the sitter order.
[2021-05-16 08:54] LABS: ALANINE AMINOTRANSFERASE 36 U/L (12-78); ALBUMIN 1.8 G/DL (3.4-5.0); ALBUMIN/GLOBULIN RATIO 0.4 (1.1-1.5); ALKALINE PHOSPHATASE 126 IU/L (46-116); ANION GAP 9 (8-16); ASPARTATE AMINO TRANSFERASE 45 U/L (10-37); BILIRUBIN,TOTAL 1.1 MG/DL (0.1-1.0); BLOOD UREA NITROGEN 15 MG/DL (7-18); CALCIUM 8.7 MG/DL (8.5-10.1); CHLORIDE 110 MMOL/L (99-107); MAGNESIUM 1.6 MG/DL (1.5-2.4); POTASSIUM 4.1 MMOL/L (3.5-5.1); SODIUM 142 MMOL/L (135-145); TOTAL CARBON DIOXIDE 22.7 MMOL/L (24-32); TOTAL PROTEIN 6.5 G/DL (6.4-8.2); eGFR > 90 ML/MIN
[2021-05-16 08:56] LABS: GLUCOSE 148 MG/DL (70-104)
[2021-05-16 09:20] VITALS: BP 111/55
[2021-05-16] MEDS: clopidogrel 75mg tablet PO SCH (09:31)
[2021-05-16] MEDS: folic acid 1mg tablet PO SCH (09:32)
[2021-05-16] MEDS: lactulose 20gm/30ml cup PO SCH (09:32)
[2021-05-16] MEDS: magnesium oxide 400mg tablet PO SCH ×2 (09:32→19:27)
[2021-05-16] MEDS: potassium Cl 20 mEq SR tablet PO SCH (09:32)
[2021-05-16] MEDS: atorvastatin 20mg tablet PO SCH (09:32)
[2021-05-16] MEDS: metoprolol tartrate 25mg tablet PO SCH ×2 (09:33→19:26)
[2021-05-16] MEDS: multivitamins, therapeutics tablet PO SCH (09:33)
[2021-05-16] MEDS: lactobacillus rhamnosus 10,000 MMU CELLS/CAPSULE PO SCH ×2 (09:33→19:26)
[2021-05-16] MEDS: famotidine 20mg tablet PO SCH ×2 (09:33→19:26)
[2021-05-16] MEDS: rifaximin 550mg tablet PO SCH ×2 (09:34→19:27)
[2021-05-16] MEDS: nystatin 15 GM powder TP SCH ×2 (09:34→19:28)
[2021-05-16] MEDS: heparin, porcine 5000 units/ml vial SQ SCH ×2 (09:35→19:28)
[2021-05-16] MEDS: aspirin 81mg, enteric-coated 1 TAB TABLET.DR PO SCH (09:35)
[2021-05-16] MEDS: magnesium Cl slow-release 64mg tablet PO SCH ×2 (09:43→19:27)
[2021-05-16 11:00] VITALS: BP 108/61
--- NOTE | 2021-05-16 15:33 | NUR ---
Dr. Aguilar instructed me to start patient on Rifaximin tomorrow. I told him that patient already on it and I actually gave the morning dose. Dr. Aguilar said pharmacy has been contacting him about this and he was requesting me to start this tomorrow so I change the order for tomorrow's date as start date
--- NOTE | 2021-05-16 17:18 | NUR ---
RANDY Jordan reported to me that patient has a cut on under the chin and that patient must have scratched herself. When I looked at her chin, it has cut and bleeding a little bit. Patient's fingernails were dirty. Patient was instructed not to scratch herself as he fingernails are long and dirty. I cleanser her chin with saline, pat dried then applied bacitracin ointment then covered with bandage. Will order wound care consult to have patient's fingernail trim
[2021-05-16 18:00] VITALS: BP 128/66
[2021-05-17] VITALS: BP 106/64
[2021-05-17 06:29] LABS: ALANINE AMINOTRANSFERASE 27 U/L (12-78); ALBUMIN 1.5 G/DL (3.4-5.0); ALBUMIN/GLOBULIN RATIO 0.3 (1.1-1.5); ALKALINE PHOSPHATASE 105 IU/L (46-116); ANION GAP 6 (8-16); ASPARTATE AMINO TRANSFERASE 38 U/L (10-37); BILIRUBIN,TOTAL 0.8 MG/DL (0.1-1.0); BLOOD UREA NITROGEN 13 MG/DL (7-18); BUN/CREATININE RATIO 27.1 (6.6-38.0); CALCIUM 8.3 MG/DL (8.5-10.1); CHLORIDE 112 MMOL/L (99-107); CREATININE 0.48 MG/DL (0.40-0.90); GLUCOSE 91 MG/DL (70-104); SODIUM 142 MMOL/L (135-145); TOTAL CARBON DIOXIDE 24.2 MMOL/L (24-32); TOTAL PROTEIN 5.8 G/DL (6.4-8.2); eGFR > 90 ML/MIN
[2021-05-17 06:37] LABS: BASOPHILS # (AUTO) 0.1 X10'3 (0-0.2); BASOPHILS % (AUTO) 1.3 % (0-1); EOSINOPHILS # (AUTO) 0.4 X10'3 (0-0.9); EOSINOPHILS % (AUTO) 5.6 % (0-6); HEMATOCRIT 27.5 % (35.0-45.0); HEMOGLOBIN 9.4 g/dl (12.0-16.0); LYMPHOCYTES # (AUTO) 2.5 X10'3 (1.1-4.8); LYMPHOCYTES % (AUTO) 32.6 % (21-51); MEAN CORPUSCULAR HEMOGLOBIN 36.3 PG (27.0-31.0); MEAN CORPUSCULAR HGB CONC 34.1 g/dL (33.0-36.5); MEAN CORPUSCULAR VOLUME 106.4 FL (78-98); MEAN PLATELET VOLUME 7.5 FL (7.4-10.4); MONOCYTES # (AUTO) 0.8 X10'3 (0-0.9); MONOCYTES % (AUTO) 10.6 % (2-12); NEUTROPHILS # (AUTO) 3.8 X10'3 (1.8-7.7); NEUTROPHILS % (AUTO) 49.9 % (42-75); PLATELET COUNT 135 X10'3 (140-440); RED BLOOD COUNT 2.58 X10'6 (4.20-5.60); RED CELL DISTRIBUTION WIDTH 16.4 % (11.5-14.5); WHITE BLOOD COUNT 7.7 X10'3 (4.5-11.0)
[2021-05-17 07:00] VITALS: BP 116/65
[2021-05-17] MEDS: K and/or MAG REPLACEMENT MC SCH ×2 (08:00→20:00)
[2021-05-17] MEDS: methyl salicylate/menthol cream 57gm TP SCH ×2 (08:00→20:00)
[2021-05-17] MEDS: potassium Cl 20 mEq SR tablet PO SCH (09:49)
[2021-05-17] MEDS: lactobacillus rhamnosus 10,000 MMU CELLS/CAPSULE PO SCH ×2 (09:50→20:24)
[2021-05-17] MEDS: heparin, porcine 5000 units/ml vial SQ SCH ×2 (09:50→20:33)
[2021-05-17] MEDS: aspirin 81mg, enteric-coated 1 TAB TABLET.DR PO SCH (09:50)
[2021-05-17] MEDS: atorvastatin 20mg tablet PO SCH (09:51)
[2021-05-17] MEDS: metoprolol tartrate 25mg tablet PO SCH ×2 (09:51→20:37)
[2021-05-17] MEDS: multivitamins, therapeutics tablet PO SCH (09:51)
[2021-05-17] MEDS: famotidine 20mg tablet PO SCH ×2 (09:51→20:24)
[2021-05-17] MEDS: clopidogrel 75mg tablet PO SCH (09:51)
[2021-05-17] MEDS: rifaximin 550mg tablet PO SCH ×2 (09:52→20:24)
[2021-05-17] MEDS: folic acid 1mg tablet PO SCH (09:52)
[2021-05-17] MEDS: nystatin 15 GM powder TP SCH ×2 (09:53→20:29)
[2021-05-17] MEDS: magnesium oxide 400mg tablet PO SCH ×2 (09:55→20:31)
[2021-05-17] MEDS: magnesium Cl slow-release 64mg tablet PO SCH ×2 (09:55→20:27)
--- NOTE | 2021-05-17 10:53 | NUR ---
Wound care nurse Marifer was made aware of the consult for nail trimming and the reason why. She gave me the tools needed instead and said to me "I don't feel comfortable doing it as I do not have the certification needed to do it!" braider tender will give patient a shower today. Charge nurse Vania was notified about the wound care nurse unwillingness to do the nail clipping.
[2021-05-17 11:00] VITALS: BP 113/58
[2021-05-17 20:00] VITALS: BP 119/68
[2021-05-17] MEDS: lactulose 20gm/30ml cup PO SCH (20:24)
[2021-05-18] VITALS: BP 105/60
[2021-05-18 07:00] VITALS: BP 120/71
--- NOTE | 2021-05-18 07:08 | NUR ---
Patient in room [facility] 359B. I have received report from SHILA COHN and had the opportunity to ask questions and assume patient care.
[2021-05-18] MEDS: K and/or MAG REPLACEMENT MC SCH ×2 (08:00→20:00)
[2021-05-18] MEDS: lactobacillus rhamnosus 10,000 MMU CELLS/CAPSULE PO SCH ×2 (08:00→20:21)
[2021-05-18] MEDS: lactulose 20gm/30ml cup PO SCH ×2 (08:00→20:20)
--- NOTE | 2021-05-18 08:06 | NUR ---
Late entry for 05/17/2021 Consult for fingernail trim received. RN delivered orange sticks, davi boards and disposable nail clippers to primary nurse. Addendum: 05/18/21 at 0807 by Mariposa Negrete RN Amended: Links added.
[2021-05-18] MEDS: atorvastatin 20mg tablet PO SCH (10:04)
[2021-05-18] MEDS: magnesium Cl slow-release 64mg tablet PO SCH ×2 (10:04→20:21)
[2021-05-18] MEDS: folic acid 1mg tablet PO SCH (10:04)
[2021-05-18] MEDS: famotidine 20mg tablet PO SCH ×2 (10:04→20:22)
[2021-05-18] MEDS: magnesium oxide 400mg tablet PO SCH ×2 (10:04→20:21)
[2021-05-18] MEDS: aspirin 81mg, enteric-coated 1 TAB TABLET.DR PO SCH (10:05)
[2021-05-18] MEDS: clopidogrel 75mg tablet PO SCH (10:05)
[2021-05-18] MEDS: rifaximin 550mg tablet PO SCH ×2 (10:29→20:21)
[2021-05-18] MEDS: potassium Cl 20 mEq SR tablet PO SCH (10:29)
[2021-05-18] MEDS: multivitamins, therapeutics tablet PO SCH (10:30)
[2021-05-18] MEDS: heparin, porcine 5000 units/ml vial SQ SCH ×2 (10:33→20:21)
[2021-05-18] MEDS: metoprolol tartrate 25mg tablet PO SCH ×2 (10:35→20:30)
[2021-05-18] MEDS: nystatin 15 GM powder TP SCH ×2 (10:37→20:23)
[2021-05-18] MEDS: methyl salicylate/menthol cream 57gm TP SCH ×2 (10:37→20:00)
[2021-05-18 11:00] VITALS: BP 120/68
--- NOTE | 2021-05-18 18:35 | NUR ---
Problems reprioritized. Patient report given, questions answered & plan of care reviewed with SHILA COHN.
[2021-05-18 20:00] VITALS: BP 128/79
[2021-05-19] VITALS: BP 136/80
[2021-05-19] MEDS: temazepam 15mg capsule PO PRN (01:44)
[2021-05-19 06:30] VITALS: BP 109/60
--- NOTE | 2021-05-19 07:00 | NUR ---
Patient in room [facility]. I have received report from SHILA Cantrell and had the opportunity to ask questions and assume patient care.
[2021-05-19] MEDS: K and/or MAG REPLACEMENT MC SCH ×2 (08:00→20:00)
[2021-05-19 11:00] VITALS: BP 117/77
[2021-05-19] MEDS: famotidine 20mg tablet PO SCH ×2 (11:15→19:44)
[2021-05-19] MEDS: aspirin 81mg, enteric-coated 1 TAB TABLET.DR PO SCH (11:15)
[2021-05-19] MEDS: lactulose 20gm/30ml cup PO SCH ×2 (11:15→19:44)
[2021-05-19] MEDS: potassium Cl 20 mEq SR tablet PO SCH (11:16)
[2021-05-19] MEDS: magnesium Cl slow-release 64mg tablet PO SCH ×2 (11:16→19:44)
[2021-05-19] MEDS: clopidogrel 75mg tablet PO SCH (11:16)
[2021-05-19] MEDS: atorvastatin 20mg tablet PO SCH (11:16)
[2021-05-19] MEDS: multivitamins, therapeutics tablet PO SCH (11:16)
[2021-05-19] MEDS: folic acid 1mg tablet PO SCH (11:17)
[2021-05-19] MEDS: magnesium oxide 400mg tablet PO SCH ×2 (11:17→19:44)
[2021-05-19] MEDS: rifaximin 550mg tablet PO SCH ×2 (11:17→19:45)
[2021-05-19] MEDS: lactobacillus rhamnosus 10,000 MMU CELLS/CAPSULE PO SCH ×2 (11:18→19:44)
[2021-05-19] MEDS: metoprolol tartrate 25mg tablet PO SCH ×2 (11:19→19:44)
[2021-05-19] MEDS: nystatin 15 GM powder TP SCH ×2 (11:20→19:45)
[2021-05-19] MEDS: heparin, porcine 5000 units/ml vial SQ SCH ×2 (11:20→19:45)
[2021-05-19] MEDS ORDERED: RIFA550T PO (11:45)
[2021-05-19] MEDS ORDERED: ATOR20TA66 PO (11:45)
[2021-05-19] MEDS ORDERED: LACT10SO32 PO (11:45)
[2021-05-19] MEDS ORDERED: LOP25T PO (11:45)
[2021-05-19] MEDS ORDERED: CLOP75TA34 PO (11:45)
[2021-05-19 18:00] VITALS: BP 124/69
--- NOTE | 2021-05-19 18:50 | NUR ---
Problems reprioritized. Patient report given, questions answered & plan of care reviewed with SHILA Calvin.
[2021-05-20] VITALS: BP 124/72
--- NOTE | 2021-05-20 06:16 | NUR ---
Problems reprioritized. Patient report given, questions answered & plan of care reviewed with Marilee RN.
--- NOTE | 2021-05-20 06:20 | NUR ---
Patient in room [facility]. I have received report from SHILA Calvin and had the opportunity to ask questions and assume patient care.
[2021-05-20 06:30] VITALS: BP 114/64
[2021-05-20] MEDS: K and/or MAG REPLACEMENT MC SCH (08:00)
[2021-05-20] MEDS: aspirin 81mg, enteric-coated 1 TAB TABLET.DR PO SCH (08:23)
[2021-05-20] MEDS: magnesium Cl slow-release 64mg tablet PO SCH (08:23)
[2021-05-20] MEDS: multivitamins, therapeutics tablet PO SCH (08:23)
[2021-05-20] MEDS: lactobacillus rhamnosus 10,000 MMU CELLS/CAPSULE PO SCH (08:23)
[2021-05-20] MEDS: rifaximin 550mg tablet PO SCH (08:23)
[2021-05-20] MEDS: folic acid 1mg tablet PO SCH (08:23)
[2021-05-20] MEDS: clopidogrel 75mg tablet PO SCH (08:23)
[2021-05-20 08:24] VITALS: BP_SYST 114
[2021-05-20] MEDS: famotidine 20mg tablet PO SCH (08:24)
[2021-05-20] MEDS: potassium Cl 20 mEq SR tablet PO SCH (08:24)
[2021-05-20] MEDS: magnesium oxide 400mg tablet PO SCH (08:24)
[2021-05-20] MEDS: atorvastatin 20mg tablet PO SCH (08:24)
[2021-05-20] MEDS: metoprolol tartrate 25mg tablet PO SCH (08:24)
[2021-05-20] MEDS: heparin, porcine 5000 units/ml vial SQ SCH (08:25)
[2021-05-20] MEDS: nystatin 15 GM powder TP SCH (08:26)
[2021-05-20] MEDS: lactulose 20gm/30ml cup PO SCH (08:26)
--- NOTE | 2021-05-20 09:45 | NUR ---
DC inst sent home with pt. No IV. Pt transported home via [facility] ambulance.
== END 2021-05-20 09:40 | disposition home or self-care (01) | DRG 870 ==
LOC: PCU 3S 20:08 → UNDOADMIN 20:08 → PCU 3S 04-24 04:46 → ICU 2S 04-27 05:31 → PCU 3S 05-04 16:59 → SUR 3N 05-10 13:57
PROVIDERS: ADMIT Family Medicine; ATTEND Family Medicine
PROC: B32T1ZZ Computerized Tomography (CT Scan) of Left Pulmonary Artery using Low Osmolar Contrast (ICD-10-PCS; 2021-04-24)
PROC: B3201ZZ Computerized Tomography (CT Scan) of Thoracic Aorta using Low Osmolar Contrast (ICD-10-PCS; 2021-04-24)
PROC: B32S1ZZ Computerized Tomography (CT Scan) of Right Pulmonary Artery using Low Osmolar Contrast (ICD-10-PCS; 2021-04-24)
PROC: 5A1955Z Respiratory Ventilation, Greater than 96 Consecutive Hours (ICD-10-PCS; principal; 2021-04-27)
PROC: 0BH17EZ Insertion of Endotracheal Airway into Trachea, Via Natural or Artificial Opening (ICD-10-PCS; 2021-04-27)
PROC: 5A09357 Assistance with Respiratory Ventilation, Less than 24 Consecutive Hours, Continuous Positive Airway Pressure (ICD-10-PCS; 2021-04-27)
PROC: B3251ZZ Computerized Tomography (CT Scan) of Bilateral Common Carotid Arteries using Low Osmolar Contrast (ICD-10-PCS; 2021-05-14)
PROC: B32G1ZZ Computerized Tomography (CT Scan) of Bilateral Vertebral Arteries using Low Osmolar Contrast (ICD-10-PCS; 2021-05-14)
PROC: B32R1ZZ Computerized Tomography (CT Scan) of Intracranial Arteries using Low Osmolar Contrast (ICD-10-PCS; 2021-05-14)
PROC: B3281ZZ Computerized Tomography (CT Scan) of Bilateral Internal Carotid Arteries using Low Osmolar Contrast (ICD-10-PCS; 2021-05-14)
DX: A41.01 Sepsis due to Methicillin susceptible Staphylococcus aureus (principal); J15.211 Pneumonia due to Methicillin susceptible Staphylococcus aureus; I21.A1 Myocardial infarction type 2; J96.01 Acute respiratory failure with hypoxia; R65.21 Severe sepsis with septic shock; J69.0 Pneumonitis due to inhalation of food and vomit; G92.8 Other toxic encephalopathy; I63.542 Cerebral infarction due to unspecified occlusion or stenosis of left cerebellar artery; F10.239 Alcohol dependence with withdrawal, unspecified; N17.9 Acute kidney failure, unspecified; J98.11 Atelectasis; T17.890A Other foreign object in other parts of respiratory tract causing asphyxiation, initial encounter; E87.3 Alkalosis; E87.0 Hyperosmolality and hypernatremia; X58.XXXA Exposure to other specified factors, initial encounter; Z20.822 Contact with and (suspected) exposure to COVID-19; E83.39 Other disorders of phosphorus metabolism; E83.42 Hypomagnesemia; E88.09 Other disorders of plasma-protein metabolism, not elsewhere classified; K72.90 Hepatic failure, unspecified without coma; E87.6 Hypokalemia; G40.909 Epilepsy, unspecified, not intractable, without status epilepticus; K70.30 Alcoholic cirrhosis of liver without ascites; D53.9 Nutritional anemia, unspecified; K80.20 Calculus of gallbladder without cholecystitis without obstruction; Z78.1 Physical restraint status; Z79.02 Long term (current) use of antithrombotics/antiplatelets; Z91.048 Other nonmedicinal substance allergy status; Z99.3 Dependence on wheelchair; Y93.89 Activity, other specified; Y92.89 Other specified places as the place of occurrence of the external cause; Y99.8 Other external cause status; Z79.82 Long term (current) use of aspirin; Z79.899 Other long term (current) drug therapy; Z71.41 Alcohol abuse counseling and surveillance of alcoholic
CPT/HCPCS: 31645; 36415; 36569; 36600; 70470; 70496; 70498; 70553; 71045; 71275; 72125; 76700; 80048; 80053; 80061; 80202; 81001; 82103; 82140; 82330; 82550; 82803; 82948; 83036; 83605; 83690; 83735; 83880; 84100; 84132; 84134; 84145; 84439; 84443; 84478; 84484; 85007; 85018; 85025; 85379; 85610; 85730; 87040; 87070; 87077; 87081; 87186; 87635; 92508; 93005; 93306; 94002; 94003; 94760; 97110; 97116; 97162; 97530; A9575; G0378; J0690; J1644; J1815; J1940; J1956; J2060; J2543; J2704; J3010; J3370; J3411; J3475; J3480; J3490; J7030; J7050; J7060; Q9967